=== PATIENT | male | born 1985 | race Caucasian/White ===

== ENCOUNTER 2016-04-13 14:22 | Emergency (ER) | payer BC, OTHER ==
[2016-04-13 15:32] VITALS: BP 137/81
--- NOTE | 2016-04-13 15:52 | UC ---
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;; right worse than left - History Of Current Complaint Chief Complaint: UCUpperExtremity Stated Complaint: HAND PAIN Time Seen by Provider: 04/13/16 15:42 Hx Obtained From: Patient Mechanism Of Injury: repeatitive stress Onset/Duration: Gradual Onset, Lasting Weeks, Still Present Severity Initially: Moderate Severity Currently: Moderate Pain Intensity: 5 Pain Scale Used: 0-10 Numeric Character Of Pain: Aching, Unable To Describe - tingling 2,3,4 fingers Aggravating Factor(s): Movement, Lifting Alleviating: Rest Associated Signs And Symptoms: Positive: Numbness/Tingling - in 2,3,4 fingers Related History: Dominant Hand Right - Allergies/Home Medications Allergies/Adverse Reactions: Allergies Allergy/AdvReac Type Severity Reaction Status Date / Time Tobramycin Allergy Severe Swelling Verified 04/13/16 15:32 Home Medications: Home Medications Acetaminophen 500 mg PO PRN 04/13/16 [History] PMH/Surg Hx/FS Hx/Imm Hx Previously Healthy: No Endocrine History Of: Denies: Diabetes, Thyroid Disease, Hyperthyroidism, Hypothyroidism, Dyslipidemia Cardiovascular History Of: Denies: Cardiac Disorders, Hypertension, Pacemaker/ICD, Myocardial Infarction , Congestive Heart Failure, Atrial Fibrillation, Deep Vein Thrombosis, Bleeding Disorders Respiratory History Of: Denies: COPD, Asthma GI/ History Of: Reports: Gastroesophageal Reflux - He states that he will have occasional reflux, but TUMS takes care of it., Kidney Stones - LEFT Denies: Ulcer, Gastrointestinal Bleed, Gall Bladder Disease, Diverticulitis, Renal Disease, Urosepsis Neurological History Of: Reports: Migraine - He states that gets these infrequently. Denies: TIA, CVA, Dementia, Seizures Psychological History Of: Reports: Anxiety - PAST, Depression - PAST, Post Traumatic Stress Disorder - He is not on medication for it. 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: With Family Alcohol Use: Rare Alcohol Amount: 1/month Substance Use Type: None Smoking Status (MU): Former Smoker Have You Smoked in the Last Year: No When Did the Patient Quit Smoking/Using Tobacco: 2005 Review of Systems Constitutional: Negative Skin: Negative Eyes: Negative ENT: Negative Respiratory: Negative Cardiovascular: Negative Gastrointestinal: Negative Genitourinary: Negative Motor: Weakness - right hand worse than left Neurovascular: Negative Musculoskeletal: Arthralgia - right worse than left hand and wrist Neurological: Negative Psychological: Negative All Other Systems Reviewed And Are Negative: Yes Physical Exam Triage Information Reviewed: Yes Appearance: Well-Appearing, No Pain Distress, Obese Vital Signs: Initial Vital Signs Temp 97.5 F 04/13/16 15:28 Pulse 83 04/13/16 15:28 Resp 18 04/13/16 15:28 BP 137/81 04/13/16 15:28 Pulse Ox 99 04/13/16 15:28 Vital Signs Reviewed: Yes Eye Exam: Normal Eyes: Positive: Conjunctiva Clear ENT Exam: Normal ENT: Positive: Normal ENT inspection, Hearing grossly normal. 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 Neurological Exam: Normal Neurological: Positive: Alert, Muscle Tone Normal Psychological Exam: Normal Skin Exam: Normal Hand/Wrist Course/Dx - Course Course Of Treatment: carpal tunnel exercise, wrist spling pain med, follow with ortho and PT - Differential Dx/Diagnosis Differential Diagnosis/HQI/PQRI: Carpal Tunnel Syndrome, Contusion, Gout Provider Diagnoses: B/l Carpal Tunnel PAin Discharge - Discharge Plan Condition: Stable Disposition: HOME Prescriptions: Methylprednisolone [Medrol Dosepak 4 MG*] 0 mg PO .SEE ELINA INSTRUCTION #1 elina Tramadol HCl [Ultram] 50 - 100 mg PO BID PRN #20 tab MDD 4 PRN Reason: pain Patient Education Materials: Carpal Tunnel Syndrome Exercises (GEN), Carpal Tunnel Syndrome (ED) Forms: *Work Release Referrals: No Primary Care Phys,NOPCP [Primary Care Provider] - Fidelia Herrera MD [Medical Doctor] - 2 Weeks
== END 2016-04-13 16:18 | disposition home or self-care (01) ==
LOC: UCEAST 14:22
DX: G56.03 Carpal tunnel syndrome, bilateral upper limbs (principal); Z88.1 Allergy status to other antibiotic agents; Z87.891 Personal history of nicotine dependence
CPT/HCPCS: 99212; G0463

== ENCOUNTER 2016-05-14 11:51 | Emergency (ER) | payer OTHER ==
[2016-05-14 12:16] VITALS: BP 140/76
--- NOTE | 2016-05-14 12:26 | UC ---
FLU HPI - HPI Summary HPI Summary: body aches, cough, sore throat, chills subjective fever for 4 days - History of Current Complaint Hx Obtained From: Patient Onset/Duration: Sudden Onset, Lasting Days - 4, Still Present Severity Currently: Moderate Severity Initially: Moderate Pain Intensity: 7 Pain Scale Used: 0-10 Numeric Associated Signs & Symptoms: Positive: Fever, Myalgia, Cough, Sore Throat, Nasal Congestion, Headache <Alivia Mitchell - Last Filed: 05/14/16 13:06> <Michelle Quarles - Last Filed: 05/14/16 13:45> - History of Current Complaint Chief Complaint: UCRespiratory Stated Complaint: SORE THROAT CONGESTION JOINT PAIN Time Seen by Provider: 05/14/16 12:25 - Allergy/Home Medications Allergies/Adverse Reactions: Allergies Allergy/AdvReac Type Severity Reaction Status Date / Time Tobramycin Allergy Severe Swelling Verified 05/14/16 12:16 Home Medications: Home Medications Ibuprofen TAB* [Advil TAB*] 200 mg PO TID PRN 05/14/16 [History Confirmed ] PMH/Surg Hx/FS Hx/Imm Hx Previously Healthy: No Endocrine History Of: Denies: Diabetes, Thyroid Disease, Hyperthyroidism, Hypothyroidism, Dyslipidemia Cardiovascular History Of: Denies: Cardiac Disorders, Hypertension, Pacemaker/ICD, Myocardial Infarction , Congestive Heart Failure, Atrial Fibrillation, Deep Vein Thrombosis, Bleeding Disorders Respiratory History Of: Denies: COPD, Asthma GI/ History Of: Reports: Gastroesophageal Reflux - He states that he will have occasional reflux, but TUMS takes care of it., Kidney Stones - LEFT Denies: Ulcer, Gastrointestinal Bleed, Gall Bladder Disease, Diverticulitis, Renal Disease, Urosepsis Neurological History Of: Reports: Migraine - He states that gets these infrequently. Denies: TIA, CVA, Dementia, Seizures Psychological History Of: Reports: Anxiety - PAST, Depression - PAST, Post Traumatic Stress Disorder - He is not on medication for it. 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: With Family Alcohol Use: Rare Alcohol Amount: 1/month Substance Use Type: None Smoking Status (MU): Former Smoker Have You Smoked in the Last Year: No When Did the Patient Quit Smoking/Using Tobacco: 2005 <Alivia Mitchell Last Filed: 05/14/16 13:06> Review of Systems Constitutional: Fever - subjective, Chills, Fatigue Skin: Negative Eyes: Negative ENT: Sore Throat, Ear Ache, Nasal Discharge Respiratory: Cough Cardiovascular: Negative Gastrointestinal: Negative Genitourinary: Negative Motor: Negative Neurovascular: Negative Musculoskeletal: Arthralgia, Myalgia Neurological: Headache Psychological: Negative All Other Systems Reviewed And Are Negative: Yes <Alivia Mitchell Filed: 05/14/16 13:06> Physical Exam Triage Information Reviewed: Yes Appearance: Ill-Appearing - mild, Pain Distress - mild, Obese Vital Signs: Initial Vital Signs Temp 98.0 F 05/14/16 12:11 Pulse 94 05/14/16 12:11 Resp 20 05/14/16 12:11 BP 140/76 05/14/16 12:11 Pulse Ox 100 05/14/16 12:11 Vital Signs Reviewed: Yes Eye Exam: Normal Eyes: Positive: Conjunctiva Clear ENT Exam: Normal ENT: Positive: Normal ENT inspection, Hearing grossly normal, Pharynx normal, TMs normal. Negative: Nasal congestion, Nasal drainage, Tonsillar swelling, Tonsillar exudate, Trismus, Muffled/hoarse voice Dental Exam: Normal Neck exam: Normal Neck: Positive: Supple, Nontender, No Lymphadenopathy Respiratory Exam: Normal Respiratory: Positive: Chest non-tender, Lungs clear, Normal breath sounds, No respiratory distress, No accessory muscle use Cardiovascular Exam: Normal Cardiovascular: Positive: RRR, No Murmur, Pulses Normal, Brisk Capillary Refill Abdominal Exam: Normal Abdomen Description: Positive: Nontender, No Organomegaly, Soft Bowel Sounds: Positive: Present Musculoskeletal Exam: Normal Musculoskeletal: Positive: Strength Intact, ROM Intact, No Edema Neurological Exam: Normal Neurological: Positive: Alert, Muscle Tone Normal Psychological Exam: Normal Skin Exam: Normal <Alivia Mitchell Filed: 05/14/16 13:06> Vital Signs: Initial Vital Signs Temp 98.0 F 05/14/16 12:11 Pulse 94 05/14/16 12:11 Resp 20 05/14/16 12:11 BP 140/76 05/14/16 12:11 Pulse Ox 100 05/14/16 12:11 <Michelle Quarles - Last Filed: 05/14/16 13:45> Diagnostics - Laboratory Diagnostic Studies Completed/Ordered: Influenza A (+) <Alivia Mitchell - Last Filed: 05/14/16 13:06> Flu Course/Dx - Course Course Of Treatment: rest, increase fluids, tylenol, ibuprofen, follow with pcp prn - Differential Dx/Diagnosis Differential Diagnosis/HQI/PQRI: Influenza, Pneumonia, RSV, Upper Respiratory Infection Provider Diagnoses: Influenza A <Alivia Mitchell - Last Filed: 05/14/16 13:06> Discharge <Alivia Mitchell - Last Filed: 05/14/16 13:06> <Michelle Quarles - Last Filed: 05/14/16 13:45> - Discharge Plan Condition: Stable Disposition: HOME Patient Education Materials: Influenza (ED) Forms: *Work Release Referrals: [facility] [place] [facility]IAN REFERRAL [Outside] - If Needed No Primary Care Phys,NOPCP [Primary Care Provider] - Attestation Statement User Type: Provider - I was available for consult. This patient was seen by the DENISE. The patient was not presented to, seen by, or examined by me. <Michelle Quarles - Last Filed: 05/14/16 13:45>
== END 2016-05-14 13:05 | disposition home or self-care (01) ==
LOC: UCEAST 11:51
DX: J10.1 Influenza due to other identified influenza virus with other respiratory manifestations (principal); E66.9 Obesity, unspecified; R03.0 Elevated blood-pressure reading, without diagnosis of hypertension; Z88.1 Allergy status to other antibiotic agents; Z87.891 Personal history of nicotine dependence
CPT/HCPCS: 87502; 99211; G0463

== ENCOUNTER 2016-06-22 11:42 | Emergency (ER) | payer OTHER ==
[2016-06-22 12:03] VITALS: BP 142/75
--- NOTE | 2016-06-22 12:38 | RAD ---
HISTORY: Lateral left foot pain COMPARISONS: November 12, 2015 VIEWS: 3, Frontal, lateral, and oblique views of the left foot FINDINGS: BONE DENSITY: Normal. BONES: There is no displaced fracture. JOINTS: There is no arthropathy. ALIGNMENT: There is no dislocation. SOFT TISSUES: Unremarkable. OTHER FINDINGS: None. IMPRESSION: NO ACUTE OSSEOUS INJURY. IF SYMPTOMS PERSIST, RECOMMEND REPEAT IMAGING.
[2016-06-22] MEDS ORDERED: Acetaminophen TAB* 325 MG PO ONE (12:44)
[2016-06-22] MEDS ORDERED: Ibuprofen TAB* 600 MG PO ONE (12:45)
--- NOTE | 2016-06-22 12:54 | UC ---
An Mesa SooYoung, scribed for [facility] MD on 06/22/16 at 1201 . Lower Extremity/Ankle HPI - HPI Summary HPI Summary: IN ROOM NOTE: A 30 y/o M presents to [facility] [place] with c/o LLE pain along lateral part of L foot onset yesterday morning. Pt was standing at work for a long period in "bad shoes" and developed pain the following day. Pt states he is also getting over a cold, flu. No overnight hospitalizations recently. PMHx: intermittent gout since 2009. Pain is at the same location of his gout flare-ups, but he states the previous episodes of gout do not feel similar to his sx today. NOTE: Vital signs stable. Temp 98.3. BP is 142/75, is not on anti-HTN medications. Pulse ox 98. 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 PAIN IS OVER 4TH AND 5TH METATARSALS. HX OF GOUT IN BOTH FEET. PAIN STARTED YESTERDAY MORNING AFTER 9.5 HOUR SHIFT. STOOD ON IT FOR AN ADDITIONAL 7 HOURS TODAY. 5/10 PAIN NON-WEIGHT BEARING. 9/10 PAIN WHEN TRYING TO BEAR WEIGHT. NO PREVIOUS INJURIES TO FOOT. - History of Current Complaint Stated Complaint: FOOT PAIN Time Seen by Provider: 06/22/16 11:52 Hx Obtained From: Patient Onset/Duration: Lasting Days, Still Present Severity Currently: Moderate Pain Intensity: 5 Pain Scale Used: 0-10 Numeric Aggravating Factor(s): Standing, Ambulation Related History: Occupational Injury - Allergies/Home Medications Allergies/Adverse Reactions: Allergies Allergy/AdvReac Type Severity Reaction Status Date / Time Tobramycin Allergy Severe Swelling Verified 06/22/16 11:53 PMH/Surg Hx/FS Hx/Imm Hx Previously Healthy: No Endocrine History Of: Denies: Diabetes, Thyroid Disease, Hyperthyroidism, Hypothyroidism, Dyslipidemia Cardiovascular History Of: Denies: Cardiac Disorders, Hypertension, Pacemaker/ICD, Myocardial Infarction , Congestive Heart Failure, Atrial Fibrillation, Deep Vein Thrombosis, Bleeding Disorders Respiratory History Of: Denies: COPD, Asthma GI/ History Of: Reports: Gastroesophageal Reflux - He states that he will have occasional reflux, but TUMS takes care of it., Kidney Stones - LEFT Denies: Ulcer, Gastrointestinal Bleed, Gall Bladder Disease, Diverticulitis, Renal Disease, Urosepsis Neurological History Of: Reports: Migraine - He states that gets these infrequently. Denies: TIA, CVA, Dementia, Seizures Psychological History Of: Reports: Anxiety - PAST, Depression - PAST, Post Traumatic Stress Disorder - He is not on medication for it. Denies: Bipolar Disorder, Schizophrenia Cancer History Of: Denies: Lung Cancer, Colorectal Cancer, Breast Cancer, Prostate Cancer, Cervical Cancer Other History Of: Negative For: HIV, Hepatitis B, Hepatitis C, Anticoagulant Therapy - Surgical History Surgical History: Yes Surgery Procedure, Year, and Place: TONSILLECTOMY, RIGHT KIDNEY STONE LITHOTRIPSY - Family History Known Family History: Positive: Cardiac Disease, Hypertension, Diabetes Negative: Renal Disease - Social History Occupation: Employed Full-time Alcohol Use: Rare Alcohol Amount: 1/month Substance Use Type: None Smoking Status (MU): Former Smoker Have You Smoked in the Last Year: No When Did the Patient Quit Smoking/Using Tobacco: 2005 Review of Systems Constitutional: Negative Musculoskeletal: Other: - pain at L foot All Other Systems Reviewed And Are Negative: Yes Physical Exam Triage Information Reviewed: Yes Appearance: Well-Appearing, No Pain Distress, Well-Nourished Vital Signs: Initial Vital Signs Temp 98.3 F 06/22/16 11:54 Pulse 100 06/22/16 11:54 Resp 16 06/22/16 11:54 BP 142/75 06/22/16 11:54 Pulse Ox 98 06/22/16 11:54 Vital Signs Reviewed: Yes Eyes: Positive: Conjunctiva Clear ENT: Positive: Hearing grossly normal, Pharynx normal, TMs normal. Negative: Muffled/hoarse voice Neck: Positive: Supple, No Lymphadenopathy Respiratory: Positive: Chest non-tender, Lungs clear, Normal breath sounds, No respiratory distress Cardiovascular: Positive: RRR, No Murmur Abdomen Description: Positive: Nontender, No Organomegaly, Soft Musculoskeletal: Positive: Other: - MELCHOR; TENDERNESS AT 4TH AND 5TH METATARSAL. Neurological: Positive: Alert Psychological: Positive: Age Appropriate Behavior Skin: Negative: rashes Diagnostics - Radiology L FOOT Xray Interpretation: No Acute Changes - No fx. Radiology Interpretation Completed By: ED Physician Lower Extremity Course/Dx - Course Course Of Treatment: Pt is a 30 y/o high BMI M pt, who stands at work with c/o L foot discomfort. Negative XR. Occupational injury, specifically, sprain of ligaments between 4th, 5th and 3rd metatarsals of L foot. Hypertensive BP reading of 142/75; patient referred to PCP for follow-up within 4 weeks. Medications have been included in the original chart and reviewed. - Differential Dx/Diagnosis Differential Diagnosis/HQI/PQRI: Fracture (Closed), Sprain Provider Diagnoses: L foot sprain Discharge - Discharge Plan Condition: Stable Disposition: HOME Patient Education Materials: Foot Sprain (ED) Referrals: [facility] [place] [facility]FERRAL [Outside] No Primary Care Phys,NOPCP [Primary Care Provider] - (Establish with a new primary care provider. Follow-up within the next 4 weeks for blood pressure readings and furthur evaluation.) Additional Instructions: we discussed: 1. You have sprained your left foot. 2. Rest, elevation, joan, ice after work, warm moist heat in the morning. 3. PAIN MANAGEMENT Most pain can be brought down to a reasonable level with the following: Ibuprofen 400mg PLUS acetaminophen 1000mg, every 6 hours. Maximum is 4 doses a day. 4. Re check at any time for increased pain or disability. 5. If you decide to use crutches, we can call them in for you. Note: One of your blood pressure readings was high. You had an elevated Blood Pressure reading of 142/75. Establish with a new primary care provider. Follow-up within the next 4 weeks for blood pressure readings and further evaluation. If you can't find a provider, try to check your blood pressure on your own and see if it is above 120/80. If so, follow up for further evaluation and treatment. The documentation as recorded by the An perez SooYoung accurately reflects the service I personally performed and the decisions made by me, Wu Velez MD.
== END 2016-06-22 12:54 | disposition home or self-care (01) ==
LOC: UCEAST 11:42
DX: S93.602A Unspecified sprain of left foot, initial encounter (principal); X50.1XXA Overexertion from prolonged static or awkward postures, initial encounter; K21.9 Gastro-esophageal reflux disease without esophagitis; F41.9 Anxiety disorder, unspecified; G43.909 Migraine, unspecified, not intractable, without status migrainosus; Z87.891 Personal history of nicotine dependence; Z87.442 Personal history of urinary calculi; Z88.3 Allergy status to other anti-infective agents
CPT/HCPCS: 99212; A9270-GY; G0463

== ENCOUNTER 2017-11-07 19:13 | Emergency (ER) | payer OTHER ==
--- NOTE | 2017-11-07 19:54 | ED ---
Lower Extremity - HPI Summary HPI Summary: Pt is a 32 year old male presenting to the ED with a chief complaint of his left leg feeling odd that started about an hour and a half ago. Pt was at the [place] this past few days, but today when he was at work, his leg started to feel numb. It was not any weaker than normal, but he said he felt somewhat numb and weird in his left face and arm. 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 Currently, the pt denies any pain and any trouble with gait, and the pain does not travel down his legs. The pt has a hx of back pain, kidney stones, and carpal tunnel. Pt has had no surgeries on his leg, and denies any R leg pain. - History of Current Complaint Chief Complaint: EDGeneral Stated Complaint: LEFT FACE/ARM/LEG NUMBNESS Time Seen by Provider: 11/07/17 19:42 Hx Obtained From: Patient Onset of Pain: Days Onset/Duration: Weeks - 1 week ago Severity Initially: Mild Severity Currently: Mild Pain Intensity: 3 Pain Scale Used: 0-10 Numeric Timing: Constant Location: Other - L leg Character Of Pain: Unable To Describe - numbness in leg Associated Signs And Symptoms: Positive: Weakness Aggravating Factor(s): Weight Bearing Alleviating Factor(s): Rest Able to Bear Weight: Yes - Allergies/Home Medications Allergies/Adverse Reactions: Allergies Allergy/AdvReac Type Severity Reaction Status Date / Time tobramycin Allergy Swelling Verified 11/07/17 19:31 PMH/Surg Hx/FS Hx/Imm Hx Previously Healthy: No Endocrine/Hematology History: Denies: Hx Anticoagulant Therapy, Hx Diabetes, Hx Thyroid Disease Cardiovascular History: Denies: Hx Congestive Heart Failure, Hx Deep Vein Thrombosis, Hx Hypertension , Hx Myocardial Infarction, Hx Pacemaker/ICD, Other Cardiovascular Problems/ Disorders Respiratory History: Denies: Hx Asthma, Hx Chronic Obstructive Pulmonary Disease (COPD), Hx Lung Cancer, Other Respiratory Problems/Disorders GI History: Denies: Hx Gall Bladder Disease, Hx Gastrointestinal Bleed, Hx Ulcer, Hx Urosepsis, Other GI Disorders History: Reports: Hx Kidney Stones - LEFT Denies: Hx Renal Disease Musculoskeletal History: Reports: Hx Back Problems, Other Musculoskeletal History - carpal tunnel Sensory History: Reports: Hx Contacts or Glasses - GLASSES Denies: Hx Hearing Aid Opthamlomology History: Reports: Hx Contacts or Glasses - GLASSES Neurological History: Reports: Hx Migraine - He states that gets these infrequently. Denies: Hx Dementia, Hx Seizures, Hx Transient Ischemic Attacks (TIA), Other Neuro Impairments/Disorders Psychiatric History: Reports: Hx Anxiety - PAST, Hx Depression - PAST Denies: Hx Schizophrenia, Hx Bipolar Disorder - Surgical History Surgery Procedure, Year, and Place: TONSILLECTOMY, RIGHT KIDNEY STONE LITHOTRIPSY Hx Anesthesia Reactions: No Infectious Disease History: No Infectious Disease History: Denies: Hx Clostridium Difficile, Hx Hepatitis, Hx Human Immunodeficiency Virus (HIV), Hx of Known/Suspected MRSA, Hx Shingles, Hx Tuberculosis, Hx Known/ Suspected VRE, Hx Known/Suspected VRSA, History Other Infectious Disease, Traveled Outside the [place] in Last 30 Days - Family History Known Family History: Positive: None, Cardiac Disease, Hypertension, Diabetes Negative: Renal Disease - Social History Alcohol Use: Rare Alcohol Amount: 1/month Substance Use Type: Reports: None Smoking Status (MU): Former Smoker Have You Smoked in the Last Year: No Review of Systems Negative: Fever Positive: Other - L leg numbness All Other Systems Reviewed And Are Negative: Yes Physical Exam - Summary Physical Exam Summary: Appearance: Well-appearing, Well-nourished, lying in bed comfortable Skin: Warm, dry, no obvious rash Eyes: sclera anicteric, no conjunctival pallor ENT: mucous membranes moist Neck: deferred Respiratory: No signs of respiratory distress Cardiovascular: Appears well perfused, pulses are nml Abdomen: deferred Musculoskeletal: Moving all 4 extremities without obvious discomfort, able to stand, take off pants, and is stable on one leg at a time. Neurological: Awake and alert, mentation is normal, speech is fluent and appropriate Psychiatric: affect is normal, does not appear anxious or depressed Triage Information Reviewed: Yes Vital Signs On Initial Exam: Initial Vitals Temp Pulse Resp BP Pulse Ox 98.8 F 91 20 147/79 98 11/07/17 19:25 11/07/17 19:25 11/07/17 19:25 11/07/17 19:25 11/07/17 19:25 Vital Signs Reviewed: Yes Diagnostics - Vital Signs Vital Signs Temp Pulse Resp BP Pulse Ox 11/07/17 19:25 98.8 F 91 20 147/79 98 - Laboratory Lab Statement: Any lab studies that have been ordered have been reviewed, and results considered in the medical decision making process. - EKG No standard instances Cardiac Rate: NL - 94 bpm EKG Rhythm: Sinus Rhythm ST Segment: Normal Ectopy: None EKG Interpretation: Normal Discharge - Sign-Out/Discharge Documenting (check all that apply): Patient Departure - Discharge Plan Condition: Good Disposition: HOME Patient Education Materials: Paresthesia (ED), Lumbar Radiculopathy (ED) Referrals: [facility] [Outside] No Primary Care Phys,NOPCP [Primary Care Provider] - - Attestation Statements Document Initiated by Scribe: Yes Documenting Scribe: Mariana Lamar Provider For Whom Scribe is Documenting (Include Credential): Momo Morrell MD. Scribe Attestation: Mariana Mesa scribed for Momo Morrell MD. on 11/07/17 at 2030.
[2017-11-07 20:17] VITALS: BP 163/97
== END 2017-11-07 20:15 | disposition home or self-care (01) ==
LOC: ED 19:13
DX: R20.0 Anesthesia of skin (principal); Z87.891 Personal history of nicotine dependence
CPT/HCPCS: 93005; 99282

== ENCOUNTER 2017-12-09 18:14 | Emergency (ER) | payer BC, OTHER ==
[2017-12-09 18:23] VITALS: BP 139/57
--- NOTE | 2017-12-09 19:28 | UC ---
Back Pain HPI - HPI Summary HPI Summary: 32-year-old male presents with one-week history of low back pain. States started approximately one week ago when he was attempting to pop his back. Reports constant dull pain that occasionally becomes sharp and increases with intensity with movement and ambulation. Pain improves with rest and positioning. Has taken [id number] ibuprofen with some relief as well. States has had a couple of intermittent episodes of numbness to the lateral aspect of his right leg. Denies fever, chills, abdominal pain, nausea, vomiting , dysuria, urgency, frequency, hematuria, difficulty ambulating, or loss of bowel or bladder control. - History of Current Complaint Chief Complaint: UCBackPain Stated Complaint: BACK PAIN Time Seen by Provider: 12/09/17 18:50 Hx Obtained From: Patient Onset/Duration: Sudden Onset, Lasting Weeks - 1 Timing: Constant Severity Initially: Moderate Severity Currently: Moderate Pain Intensity: 6 Character: Dull Aggravating Factor(s): Movement, Walking Alleviating Factor(s): Rest, Position, OTC Meds Associated Signs And Symptoms: Positive: Numbness. Negative: Fever, Weakness, Tingling, Abdominal Pain, Flank Pain, Bladder Incontinence, Bowel Incontinence - Allergies/Home Medications Allergies/Adverse Reactions: Allergies Allergy/AdvReac Type Severity Reaction Status Date / Time tobramycin Allergy Swelling Verified 12/09/17 18:23 PMH/Surg Hx/FS Hx/Imm Hx Previously Healthy: Yes GI/ History: Kidney Stones Other History Of: Negative For: HIV, Hepatitis B, Hepatitis C, Anticoagulant Therapy - Surgical History Surgical History: Yes Surgery Procedure, Year, and Place: TONSILLECTOMY, RIGHT KIDNEY STONE LITHOTRIPSY - Family History Known Family History: Positive: None, Cardiac Disease, Hypertension, Diabetes Negative: Renal Disease - Social History Occupation: Employed Full-time Lives: With Family Alcohol Use: Rare Alcohol Amount: 1/month Substance Use Type: None Smoking Status (MU): Former Smoker Have You Smoked in the Last Year: No When Did the Patient Quit Smoking/Using Tobacco: 2005 Review of Systems Constitutional: Negative Skin: Negative Respiratory: Negative Cardiovascular: Negative Gastrointestinal: Negative Genitourinary: Negative Motor: Negative Neurovascular: Negative Musculoskeletal: Other: - See history of present illness. Is Patient Immunocompromised?: No All Other Systems Reviewed And Are Negative: Yes Physical Exam Triage Information Reviewed: Yes Appearance: Well-Appearing, No Pain Distress, Obese Vital Signs: Initial Vital Signs Temp 97.2 F 12/09/17 18:21 Pulse 88 12/09/17 18:21 Resp 12 12/09/17 18:21 BP 139/57 12/09/17 18:21 Pulse Ox 97 12/09/17 18:21 Vital Signs Reviewed: Yes Neck: Positive: Supple, Nontender Respiratory: Positive: Lungs clear, Normal breath sounds Cardiovascular: Positive: RRR, No Murmur Abdomen Description: Positive: Nontender, No Organomegaly, Soft. Negative: CVA Tenderness (R), CVA Tenderness (L) Musculoskeletal: Positive: Strength Intact, Other: - Mild right lumbar paraspinous tenderness. No spasm noted. Neurological: Positive: Alert, Muscle Tone Normal, Other: - Sensation intact distally Skin Exam: Normal Back Pain Course/Dx - Course Course Of Treatment: 32-year-old male with one-week history of low back pain. He is reporting some intermittent numbness in the right upper leg suggestive of some radiculopathy. Exam was unremarkable except for some mild right sided lumbar paraspinous tenderness. Recommend conservative treatment with NSAIDs, muscle relaxant, and heat. He is to establish with a primary care provider if symptoms persist. Patient verbalizes understanding and agrees with plan of care. - Differential Dx/Diagnosis Differential Diagnosis/HQI/PQRI: Herniated Disc, Strain Provider Diagnoses: Lumbar radiculopathy, elevated blood pressure reading Discharge - Sign-Out/Discharge Documenting (check all that apply): Patient Departure All imaging exams completed and their final reports reviewed: No Studies - Discharge Plan Condition: Stable Disposition: HOME Prescriptions: Cyclobenzaprine HCl 10 mg PO Q8HR PRN #15 tablet PRN Reason: Pain - Severe Naproxen [Naproxen 500 mg tab] 500 mg PO BID #30 tablet Patient Education Materials: Lumbar Radiculopathy (ED), Lower Back Exercises ( ED) Referrals: No Primary Care Phys,NOPCP [Primary Care Provider] - [facility] [Outside] Additional Instructions: Take naproxen 1 tablet every 12 hours with food for the next 7 days. After 7 days you may take every 12 hours as needed for pain. Used cyclobenzaprine (Flexeril) one tablet every 8 hours as needed for severe pain or spasm. This medication will cause drowsiness a do not take and drive or operate machinery. Use heating pad for 15-20 minutes 3-4 times a day over affected area. You should establish with a primary care provider to follow-up with your back pain as well as your elevated blood pressure. I have provided you with the number to the [facility]ician Referral service if you need assistance with this. Seek immediate medical attention in the emergency room if you develop a fever greater than 100.5 F, have persistent vomiting, persistent numbness or tingling in her lower extremities, weakness of the lower extremities, or loss of bowel or bladder control. - Billing Disposition and Condition Condition: STABLE Disposition: Home
== END 2017-12-09 19:40 | disposition home or self-care (01) ==
LOC: UCEAST 18:14
DX: M54.16 Radiculopathy, lumbar region (principal); R03.0 Elevated blood-pressure reading, without diagnosis of hypertension; Z88.1 Allergy status to other antibiotic agents; Z87.891 Personal history of nicotine dependence
CPT/HCPCS: 99212; G0463

== ENCOUNTER 2018-05-22 10:41 | Emergency (ER) | payer OTHER ==
[2018-05-22 11:00] VITALS: BP 137/86
--- NOTE | 2018-05-22 11:41 | UC ---
Dental HPI - HPI Summary HPI Summary: 32 you hold with complaint of pain over second lower molar on the right. Tooth is fractured. Previous visit in March with same complaint. Also complains of mild neck swelling on the right. In [facility] comfortable, no complain of pain, slight swelling under right jaw. Afebrile. Taking ibuprofen and acetaminophen. - History of Current Complaint Chief Complaint: UCDentalProblem Stated Complaint: DENTAL PAIN Time Seen by Provider: 05/22/18 11:37 Hx Obtained From: Patient Pain Intensity: 5 - Allergies/Home Medications Allergies/Adverse Reactions: Allergies Allergy/AdvReac Type Severity Reaction Status Date / Time tobramycin Allergy Swelling Verified 05/22/18 11:01 Home Medications: Home Medications Ibuprofen 1 tab PO TID 05/22/18 [History Confirmed 05/22/18] PMH/Surg Hx/FS Hx/Imm Hx Previously Healthy: No Psychological History: Anxiety, Depression Other History Of: Negative For: HIV, Hepatitis B, Hepatitis C, Anticoagulant Therapy - Surgical History Surgical History: Yes Surgery Procedure, Year, and Place: TONSILLECTOMY, RIGHT KIDNEY STONE LITHOTRIPSY - Family History Known Family History: Positive: None, Cardiac Disease, Hypertension, Diabetes Negative: Renal Disease - Social History Occupation: Employed Full-time - [employer] Alcohol Use: Rare Alcohol Amount: 1/month Substance Use Type: None Smoking Status (MU): Former Smoker Length of Time of Smoking/Using Tobacco: pt states it is rare that he smokes now Have You Smoked in the Last Year: No When Did the Patient Quit Smoking/Using Tobacco: 2005 Household Exposure Type: Cigarettes Review of Systems All Other Systems Reviewed And Are Negative: Yes Constitutional: Positive: Negative ENT: Positive: Dental Pain - #31 Respiratory: Positive: Negative Cardiovascular: Positive: Negative Gastrointestinal: Positive: Negative Genitourinary: Positive: Negative Is Patient Immunocompromised?: No Physical Exam Triage Information Reviewed: Yes Appearance: Well-Appearing Vital Signs: Initial Vital Signs Temp 98 F 05/22/18 10:57 Pulse 83 05/22/18 10:57 Resp 18 05/22/18 10:57 BP 137/86 05/22/18 10:57 Pulse Ox 100 05/22/18 10:57 Vital Signs Reviewed: Yes Eye Exam: Normal ENT Exam: Normal ENT: Positive: Pharynx normal, TMs normal, Dental tenderness - slight tenderness under the right jaw, with mild swelling; no tenderness c/w dental abscess.. Negative: Pharyngeal erythema, Nasal congestion, Muffled voice Dental Exam: Normal Neck exam: Normal Neck: Positive: Tenderness @ - slight under right jaw; no erythema appreciated.. Negative: Nontender Respiratory Exam: Normal Respiratory: Positive: Chest non-tender, Lungs clear, Normal breath sounds Cardiovascular Exam: Normal Cardiovascular: Positive: RRR, No Murmur Abdominal Exam: Normal Abdomen Description: Positive: Nontender, No Organomegaly, Soft Bowel Sounds: Positive: Present Musculoskeletal Exam: Normal Neurological Exam: Normal Neurological: Positive: Alert Psychological Exam: Normal Skin Exam: Normal Dental Complaint Course/Dx - Course Course Of Treatment: 32 you hold with complaint of pain over second lower molar on the right. Tooth is fractured. Previous visit in March with same complaint. Also complains of mild neck swelling on the right. In [facility] comfortable, no complain of pain, slight swelling under right jaw. Afebrile. Taking ibuprofen and acetaminophen. Physical examination shows slight swelling and tenderness inferior to the area of the tooth on the neck below the right jaw. No erythema or adenopthy. No evidence by palpation of kezia apical abscess. No significant periodontal disease. Dx is odontalgia. I will start patient on amoxicillin and he will follow up with dentist. He will use ibuprofen and acetaminophen for pain. - Differential Dx/Diagnosis Differential Diagnosis/Dx: Dental Abscess, Dental Caries, Peridontic Disease Provider Diagnosis: Toothache Discharge - Sign-Out/Discharge Documenting (check all that apply): Patient Departure All imaging exams completed and their final reports reviewed: No Studies - Discharge Plan Condition: Stable Disposition: HOME Patient Education Materials: Toothache (ED) Referrals: No Primary Care Phys,NOPCP [Primary Care Provider] - - Billing Disposition and Condition Condition: STABLE Disposition: Home
== END 2018-05-22 12:12 | disposition home or self-care (01) ==
LOC: UCEAST 10:41
DX: K08.89 Other specified disorders of teeth and supporting structures (principal); Z87.891 Personal history of nicotine dependence; Z88.1 Allergy status to other antibiotic agents
CPT/HCPCS: 99212; G0463

== ENCOUNTER 2018-05-24 10:00 | Emergency (ER) | payer OTHER ==
--- NOTE | 2018-05-24 11:28 | ED ---
Throat Pain/Nasal Congestion - HPI Summary HPI Summary: This patient is a 32 year old M presenting to ED with a chief complaint of R jaw swelling since 2 days ago. He had a dental infection since 05/18/18. He was put on Amoxicillin 2 days ago and since then, the swelling has worsened. He has not taken the amoxicillin today. Prior treatment includes 600 mg Ibuprofen and 1000 mg acetaminophen. The patient rates the pain 7/10 in severity. Symptoms aggravated by nothing. Symptoms alleviated by nothing. Patient denies sore throat, pruritus, and rashes. - History of Current Complaint Chief Complaint: EDDentalPain Time Seen by Provider: 05/24/18 10:16 Hx Obtained From: Patient Onset/Duration: Sudden Onset, Lasting Days, Still Present Severity: Moderate - 7/10 - Allergies/Home Medications Allergies/Adverse Reactions: Allergies Allergy/AdvReac Type Severity Reaction Status Date / Time tobramycin Allergy Swelling Verified 05/24/18 10:02 PMH/Surg Hx/FS Hx/Imm Hx Endocrine/Hematology History: Denies: Hx Anticoagulant Therapy, Hx Diabetes, Hx Thyroid Disease Cardiovascular History: Denies: Hx Congestive Heart Failure, Hx Deep Vein Thrombosis, Hx Hypertension , Hx Myocardial Infarction, Hx Pacemaker/ICD, Other Cardiovascular Problems/ Disorders Respiratory History: Denies: Hx Asthma, Hx Chronic Obstructive Pulmonary Disease (COPD), Hx Lung Cancer, Other Respiratory Problems/Disorders GI History: Denies: Hx Gall Bladder Disease, Hx Gastrointestinal Bleed, Hx Ulcer, Hx Urosepsis, Other GI Disorders History: Reports: Hx Kidney Stones - LEFT Denies: Hx Renal Disease Musculoskeletal History: Reports: Hx Back Problems, Other Musculoskeletal History - carpal tunnel Sensory History: Reports: Hx Contacts or Glasses - GLASSES Denies: Hx Hearing Aid Opthamlomology History: Reports: Hx Contacts or Glasses - GLASSES Neurological History: Reports: Hx Migraine - He states that gets these infrequently. Denies: Hx Dementia, Hx Seizures, Hx Transient Ischemic Attacks (TIA), Other Neuro Impairments/Disorders Psychiatric History: Reports: Hx Anxiety - PAST, Hx Depression - PAST Denies: Hx Schizophrenia, Hx Bipolar Disorder - Surgical History Surgery Procedure, Year, and Place: TONSILLECTOMY, RIGHT KIDNEY STONE LITHOTRIPSY Hx Anesthesia Reactions: No Infectious Disease History: No Infectious Disease History: Denies: Hx Clostridium Difficile, Hx Hepatitis, Hx Human Immunodeficiency Virus (HIV), Hx of Known/Suspected MRSA, Hx Shingles, Hx Tuberculosis, Hx Known/ Suspected VRE, Hx Known/Suspected VRSA, History Other Infectious Disease, Traveled Outside the [place] in Last 30 Days - Family History Known Family History: Positive: Cardiac Disease, Hypertension, Diabetes Negative: Renal Disease - Social History Alcohol Use: Rare Alcohol Amount: 1/month Substance Use Type: Reports: None Smoking Status (MU): Former Smoker Length of Time of Smoking/Using Tobacco: pt states it is rare that he smokes now Have You Smoked in the Last Year: No Review of Systems Positive: Dental Pain, Other - R jaw swelling. Negative: Sore Throat Positive: Other - denies pruritus. Negative: Rash All Other Systems Reviewed And Are Negative: Yes Physical Exam - Summary Physical Exam Summary: Constitutional: Well-developed, Well-nourished, Alert. (-) Distressed Skin: Warm, Dry HENT: Atraumatic. 1 cm submandibular lymph node on the left, R submandibular base is swollen and tender to palpation. Gum of the 1st molar on the R has some tenderness. Eyes: Conjunctiva normal Neck: Musculoskeletal ROM normal neck. (-) JVD, (-) Stridor, (-) Tracheal deviation Cardio: Rhythm regular, rate normal, Heart sounds normal; Intact distal pulses; The pedal pulses are 2+ and symmetric. Radial pulses are 2+ and symmetric. (-) Murmur Pulmonary/Chest wall: Effort normal. (-) Respiratory distress, (-) Wheezes, (-) Rales Abd: Soft, (-) tenderness, (-) Distension, (-) Guarding, (-) Rebound Musculoskeletal: (-) Edema Lymph: (-) Cervical adenopathy Neuro: Alert, Oriented x3 Psych: Mood and affect Normal Triage Information Reviewed: Yes Vital Signs On Initial Exam: Initial Vitals Temp Pulse Resp BP Pulse Ox 99 F 105 18 168/97 99 05/24/18 10:03 05/24/18 10:03 05/24/18 10:03 05/24/18 10:03 05/24/18 10:03 Vital Signs Reviewed: Yes Diagnostics - Vital Signs Vital Signs Temp Pulse Resp BP Pulse Ox 05/24/18 10:03 99 F 105 18 168/97 99 - Laboratory Result Diagrams: 05/24/18 12:35 05/24/18 12:35 Lab Statement: Any lab studies that have been ordered have been reviewed, and results considered in the medical decision making process. - CT Maxillofacial CT CT Interpretation Completed By: Radiologist Summary of CT Findings: RIGHT FACIAL INFLAMMATORY CHANGE CONSISTENT WITH CELLULITIS. THERE IS NO LOCULATED FLUID COLLECTION TO SUGGEST SOFT TISSUE ABSCESS. Dr. Ramos has reviewed this radiology report. Re-Evaluation - Re-Evaluation First Eval Re-Evaluation Time: 12:37 Comment: He has some pain down his chest as an extension from the pain from his neck. Second Eval Re-Evaluation Time: 14:23 Comment: Patient reports he last took Ibuprofen and acetaminophen at 0900 this morning. Third Eval Re-Evaluation Time: 15:00 Comment: Discussed results and plan for discharge with the patient. EENT Course/Dx - Course Assessment/Plan: This patient is a 32 year old M presenting to ED with a chief complaint of R jaw swelling since 2 days ago. On exam, the patient has 1 cm submandibular lymph node on the left, R submandibular base is swollen and tender to palpation. Gum has some tenderness of the 1st molar on the R. Maxillofacial CT reveals RIGHT FACIAL INFLAMMATORY CHANGE CONSISTENT WITH CELLULITIS. THERE IS NO LOCULATED FLUID COLLECTION TO SUGGEST SOFT TISSUE ABSCESS. In the ED course, the patient was given Valium to help insert the IV, clindomycin, norco, and Toradol. The patient will be discharged with dx of Hyperglycemia, Facial cellulitis, and Dental infection. - Differential Diagnoses Differential Diagnoses: Other - Hyperglycemia, Facial cellulitis, and Dental infection - Diagnoses Provider Diagnoses: Hyperglycemia, Dental infection, Facial cellulitis Discharge - Sign-Out/Discharge Documenting (check all that apply): Patient Departure - discharge Patient Received Moderate/Deep Sedation with Procedure: No - Discharge Plan Condition: Improved Disposition: HOME Prescriptions: Clindamycin Cap(NF) [Clindamycin Cap 300 mg Cap(NF)] 300 mg PO TID 10 Days #30 cap Patient Education Materials: Dental Abscess (ED), Cellulitis (ED), Nondiabetic Hyperglycemia (ED) Print Language: ALBANIAN Forms: *Work Release Referrals: [facility] [Outside] No Primary Care Phys,NOPCP [Primary Care Provider] - - Billing Disposition and Condition Condition: IMPROVED Disposition: Home - Attestation Statements Document Initiated by Scribe: Yes Documenting Scribe: Pelon Leach Provider For Whom Scribe is Documenting (Include Credential): Katy Velazco Scribe Attestation: I, Pelon Leach, scribed for Katy West on 05/24/18 at 2138. Scribe Documentation Reviewed: Yes Provider Attestation: The documentation as recorded by the scribe, Pelon Leach accurately reflects the service I personally performed and the decisions made by me, Katy Velazco Status of Scribe Document: Viewed
[2018-05-24] MEDS ORDERED: Diazepam TAB(*) 5 MG PO ONE (11:50)
[2018-05-24 12:55] LABS: ABS Basophils 0 10^3/ul (0-0.2); ABS Eosinophils 0 10^3/ul (0-0.6); ABS Lymphocytes 1.8 10^3/ul (1.0-4.8); ABS Monocytes 0.6 10^3/ul (0-0.8); ABS Neutrophils 7.3 10^3/ul (1.5-7.7); ABS Nucleated RBC 0 10^3/ul; Eosinophil % 0.4 %; Hematocrit 42 % (36-46); Hemoglobin 14.5 g/dL (14.0-18.0); Lymphocyte % 18.5 %; Mean Corpuscular HGB Conc 34 g/dL (31-36); Mean Corpuscular Hemoglobin 29 pg (27-31); Mean Corpuscular Volume 86 fL (80-94); Nucleated Red Blood Cells % 0; Platelet Count 255 10^3/uL (150-450); Red Blood Count 4.92 10^6 /uL (4.18-5.48); Red Cell Distribution Width 13 % (10.5-15); White Blood Count 9.8 10^3/uL (3.5-10.8)
[2018-05-24 13:14] LABS: Albumin 4.1 g/dL (3.2-5.2); Albumin/Globulin Ratio 1.2 (1-3); BUN/Creatinine Ratio 13.2 (8-20); Calcium 9.4 mg/dL (8.6-10.3); EGFR African American 162.5 (>60); EGFR Non-African American 134.3 (>60); Globulin 3.4 g/dL (2-4); Potassium 4.1 mmol/L (3.5-5.0); Total Bilirubin 0.5 mg/dL (0.2-1.0); Total Protein 7.5 g/dL (6.4-8.9)
[2018-05-24] MEDS ORDERED: Iohexol 300* (CONTRAST) 10 ML SDV IV ONE (13:24)
[2018-05-24] MEDS ORDERED: Ketorolac INJ* 30 MG/ML 1 ML VIAL IV PUSH ONE (14:30)
[2018-05-24] MEDS ORDERED: HYDROcodone/ACETAMIN 5-325 MG* 1 TAB PO ONE (14:30)
[2018-05-24] MEDS ORDERED: Clindamycin CAP* 150 MG PO ONE (14:31)
[2018-05-24 15:25] VITALS: BP 141/89
== END 2018-05-24 15:23 | disposition home or self-care (01) ==
LOC: ED 10:00
DX: K04.7 Periapical abscess without sinus (principal); L03.211 Cellulitis of face; R73.9 Hyperglycemia, unspecified; R59.0 Localized enlarged lymph nodes; Z88.1 Allergy status to other antibiotic agents; Z82.49 Family history of ischemic heart disease and other diseases of the circulatory system; Z83.3 Family history of diabetes mellitus; Z87.891 Personal history of nicotine dependence
CPT/HCPCS: 36415; 70487; 80053; 85025; 96374; 99282; A9270-GY; J1885; Q9967

== ENCOUNTER 2018-05-25 08:38 | Emergency (ER) | payer OTHER ==
[2018-05-25] MEDS ORDERED: NS 0.9% 1000 ML** 1,000 ML IV ONE ×2 (08:58)
[2018-05-25] MEDS ORDERED: Clindamycin 900 MG IVPREMIX(* 900 MG/50 ML SDV IV ONE (08:58)
--- NOTE | 2018-05-25 08:59 | ED ---
Throat Pain/Nasal Congestion - HPI Summary HPI Summary: Pt. is a 32 y.o male who presents to the ER for increased right sided facial swelling. Pt. states he started with right lower dental pain about one week ago. He was seen at 05/22 and started on amoxicillin. Pt. states he then developed facial swelling and was re-examined in ED yesterday. He had labs and CT scan. CT scan showed facial cellulitis without abscess. Pt. was switched to clindamycin. Pt. states today swelling increased and he was having a hard time swallowing. Pt. notes he is able to swallow water and applesauce. He notes chills. No documented past medical hx but glucose was noted to be elevated yesterday. Symptoms are moderate in severity. No current modifying factors. - History of Current Complaint Chief Complaint: EDDentalPain Time Seen by Provider: 05/25/18 08:46 Hx Obtained From: Patient - Allergies/Home Medications Allergies/Adverse Reactions: Allergies Allergy/AdvReac Type Severity Reaction Status Date / Time tobramycin Allergy Swelling Verified 05/24/18 10:02 Home Medications: Home Medications Acetaminophen [Tylenol Extra Strength] 1,000 mg PO SEE INSTRUCTIONS PRN [History Confirmed 05/25/18] PMH/Surg Hx/FS Hx/Imm Hx Previously Healthy: Yes Endocrine/Hematology History: Denies: Hx Anticoagulant Therapy, Hx Diabetes, Hx Thyroid Disease Cardiovascular History: Denies: Hx Congestive Heart Failure, Hx Deep Vein Thrombosis, Hx Hypertension , Hx Myocardial Infarction, Hx Pacemaker/ICD, Other Cardiovascular Problems/ Disorders Respiratory History: Denies: Hx Asthma, Hx Chronic Obstructive Pulmonary Disease (COPD), Hx Lung Cancer, Other Respiratory Problems/Disorders GI History: Denies: Hx Gall Bladder Disease, Hx Gastrointestinal Bleed, Hx Ulcer, Hx Urosepsis, Other GI Disorders History: Reports: Hx Kidney Stones - LEFT Denies: Hx Renal Disease Musculoskeletal History: Reports: Hx Back Problems, Other Musculoskeletal History - carpal tunnel Sensory History: Reports: Hx Contacts or Glasses - GLASSES Denies: Hx Hearing Aid Opthamlomology History: Reports: Hx Contacts or Glasses - GLASSES Neurological History: Reports: Hx Migraine - He states that gets these infrequently. Denies: Hx Dementia, Hx Seizures, Hx Transient Ischemic Attacks (TIA), Other Neuro Impairments/Disorders Psychiatric History: Reports: Hx Anxiety - PAST, Hx Depression - PAST Denies: Hx Schizophrenia, Hx Bipolar Disorder - Surgical History Surgery Procedure, Year, and Place: TONSILLECTOMY, RIGHT KIDNEY STONE LITHOTRIPSY Hx Anesthesia Reactions: No Infectious Disease History: No Infectious Disease History: Denies: Hx Clostridium Difficile, Hx Hepatitis, Hx Human Immunodeficiency Virus (HIV), Hx of Known/Suspected MRSA, Hx Shingles, Hx Tuberculosis, Hx Known/ Suspected VRE, Hx Known/Suspected VRSA, History Other Infectious Disease, Traveled Outside the [place] in Last 30 Days - Family History Known Family History: Positive: Cardiac Disease, Hypertension, Diabetes Negative: Renal Disease - Social History Occupation: Employed Full-time Lives: With Family Alcohol Use: Rare Alcohol Amount: 1/month Substance Use Type: Reports: None Smoking Status (MU): Former Smoker Length of Time of Smoking/Using Tobacco: pt states it is rare that he smokes now Have You Smoked in the Last Year: No Review of Systems Positive: Fever, Chills ENT: Other - facial swelling Positive: Dental Pain Cardiovascular: Negative Respiratory: Negative Gastrointestinal: Negative Negative: Vomiting, Nausea All Other Systems Reviewed And Are Negative: Yes Physical Exam Triage Information Reviewed: Yes Vital Signs On Initial Exam: Initial Vitals Temp Pulse Resp BP Pulse Ox 99.3 F 107 18 171/109 98 05/25/18 08:42 05/25/18 08:42 05/25/18 08:42 05/25/18 08:42 05/25/18 08:42 Vital Signs Reviewed: Yes Appearance: Positive: Well-Appearing - Pt. sitting up in bed in NAD. present. Skin: Positive: Warm, Dry Head/Face: Positive: Normal Head/Face Inspection Eyes: Positive: Normal, EOMI, TOOTIE ENT: Positive: Other - Significant edema and pain noted to the right mandibular region extending to the submandibular region into lateral neck. moderate trismus. Oral pharnx patent without edema. No pooling of secretions. No swelling or pain under tongue. Respiratory/Lung Sounds: Positive: Clear to Auscultation, Breath Sounds Present Cardiovascular: Positive: Normal, RRR Neurological: Positive: Normal, CN Intact II-III Psychiatric: Positive: Anxious Diagnostics - Vital Signs Vital Signs Temp Pulse Resp BP Pulse Ox 05/25/18 08:42 99.3 F 107 18 171/109 98 - Laboratory Result Diagrams: 05/25/18 09:41 05/25/18 09:41 Lab Statement: Any lab studies that have been ordered have been reviewed, and results considered in the medical decision making process. EENT Course/Dx - Course Course Of Treatment: Pt. presenting for worsening right sided facial swelling. Low grade fever 99.3F, HR 107bpb. BP elevated. Pt. is failing out patient treatment and concerned for early sepsis today. Also concerned with submandibular/neck edema. Pt. maintaining his airway and is tolerating his secretions. Pt. notes he has a fear of needles and has a very hard time tolerating blood work and IVs. Pt. was given valium yesterday which he states did not help. Pt. states nothing usually helps with his anxiety. Explained the importance of IV and blood work. Pt. agreeable to IV and blood work. Labs and IV were delayed secondary to pt.'s anxiety but nurse was successfully able IV access. Pt. was started on IV fluids, clindamycin and toradol. CBC shows increased in WBC, CRP 183. 1030: I spoke with ENT, Dr. Kothari, who recommends repeat CT scan to evaluate for evolving abscess. He also recommends the addition of IV rocephin. 1050: Pt. examined by Dr. Ramos as well. Pt. c/ o increasing tightness in his throat. No signs of allergic rxn. CT per radiology: IMPRESSION: #. Significant interval worsening of superficial and deep soft tissue infection of the. RIGHT face with early abscess formation at the RIGHT media relations intern and mucosal pharyngeal. spaces as described. Associated mild narrowing of the oropharyngeal and nasopharyngeal. airways. 1200: Dr. Kothari reviewed CT scan. Dr. Kothari states he is not available the rest of the week and he spoke with upcoming ENT and he feels that it would be in pt.' s best interest to be trasnferred since they cannot guarentee availability of consult the next few days. I spoke with ENT at [facility], Dr. Mcnamara, who agrees to consult on pt. I spoke with hospitalist at , Dr. Salinas, and he has accepted pt. to his service. Pt. has remained stable in ED and is protecting airway. - Differential Diagnoses Differential Diagnoses: Cellulitis, Dental Abscess, Epiglottitis, Sang's Angina - Diagnoses Provider Diagnoses: Facial abscess, Facial cellulitis - Provider Notifications Reason For Transfer: Specialty or service not available at [facility] Specialist unable to manage this patient. Discharge - Sign-Out/Discharge Documenting (check all that apply): Patient Departure Patient Received Moderate/Deep Sedation with Procedure: No - Discharge Plan Condition: Stable Disposition: TRANS HIGHER LVL OF CARE FAC Referrals: No Primary Care Phys,NOPCP [Primary Care Provider] - - Billing Disposition and Condition Condition: STABLE Disposition: Trans Higher Lvl of Care Fac
[2018-05-25] MEDS ORDERED: Ketorolac INJ* 30 MG/ML 1 ML VIAL IV PUSH ONE (09:02)
[2018-05-25 09:50] LABS: ABS Basophils 0.1 10^3/ul (0-0.2); ABS Eosinophils 0 10^3/ul (0-0.6); ABS Lymphocytes 1.3 10^3/ul (1.0-4.8); ABS Monocytes 1.1 10^3/ul (0-0.8); ABS Neutrophils 9.5 10^3/ul (1.5-7.7); ABS Nucleated RBC 0 10^3/ul; Eosinophil % 0.1 %; Hematocrit 42 % (36-46); Hemoglobin 14.3 g/dL (14.0-18.0); Lymphocyte % 10.8 %; Mean Corpuscular HGB Conc 34 g/dL (31-36); Mean Corpuscular Hemoglobin 29 pg (27-31); Mean Corpuscular Volume 85 fL (80-94); Mean Platelet Volume 7.5 fL (7.4-10.4); Nucleated Red Blood Cells % 0.2; Platelet Count 269 10^3/uL (150-450); Red Blood Count 4.94 10^6 /uL (4.18-5.48); Red Cell Distribution Width 13 % (10.5-15)
[2018-05-25 10:15] LABS: Albumin 4.2 g/dL (3.2-5.2); Albumin/Globulin Ratio 1.1 (1-3); BUN/Creatinine Ratio 11.8 (8-20); C Reactive Protein 183.99 mg/L (<8.01); Calcium 9.4 mg/dL (8.6-10.3); EGFR African American 162.5 (>60); EGFR Non-African American 134.3 (>60); Globulin 3.7 g/dL (2-4); Potassium 3.9 mmol/L (3.5-5.0); Total Bilirubin 0.6 mg/dL (0.2-1.0); Total Protein 7.9 g/dL (6.4-8.9)
[2018-05-25] MEDS ORDERED: cefTRIAXone(*) 1 GM in NS 0.9% 50 ML* 50 ML IVPB ONE (10:38)
[2018-05-25] MEDS ORDERED: Iohexol 300* (CONTRAST) 10 ML SDV IV ONE (11:15)
--- NOTE | 2018-05-25 11:37 | ED ---
Progress - Progress Note Progress Note: ED PROVIDER SAW PATIENT AT REQUEST OF JAY GR. 10:50: ED provider at bedside Discharge - Discharge Plan Referrals: No Primary Care Phys,NOPCP [Primary Care Provider] - - Attestation Statements Document Initiated by Scribe: Yes Documenting Scribe: Eduard Nolan Provider For Whom Scribe is Documenting (Include Credential): Dr. Katy West Scribe Attestation: I, Eduard Nolan, scribed for Dr. Katy West on 05/25/18 at 1137.
[2018-05-25] MEDS ORDERED: HYDROmorphone INJ1* 1 MG/ML SYRINGE IV ONE (12:35)
[2018-05-25] MEDS ORDERED: Ondansetron INJ* 2 MG/ML VIAL IV ONE (12:36)
[2018-05-25] MEDS ORDERED: Acetaminophen ADULT LIQ* 650 MG/20.3 ML UDC PO ONE (12:48)
[2018-05-25 13:18] VITALS: BP 138/92
== END 2018-05-25 14:36 | disposition short-term general hospital (02) ==
LOC: ED 08:38
DX: L02.01 Cutaneous abscess of face (principal); L03.211 Cellulitis of face; K08.89 Other specified disorders of teeth and supporting structures; R50.9 Fever, unspecified; Z87.891 Personal history of nicotine dependence; Z87.442 Personal history of urinary calculi
CPT/HCPCS: 36415; 70487; 80053; 83605; 85025; 86140; 87040; 96361; 96365; 96375; 99285; A9270-GY; J0696; J1170; J1885; J2405; Q9967

== ENCOUNTER 2018-09-13 15:10 | Emergency (ER) | payer OTHER ==
[2018-09-13 15:38] VITALS: BP 127/79
--- NOTE | 2018-09-13 16:09 | UC ---
Knee Pain HPI - HPI Summary HPI Summary: 32 yo male injured his left knee at work on 09/10 He bumped into a pole hurts to bend knee able to bear wt no prior hx of injury - History of Current Complaint Chief Complaint: UCUpperExtremity Stated Complaint: LEFT KNEE PAIN Time Seen by Provider: 09/13/18 16:03 Hx Obtained From: Patient Onset/Duration: Sudden Onset Severity Initially: Moderate Severity Currently: Moderate Pain Intensity: 6 Pain Scale Used: 0-10 Numeric Character: Aching, Throbbing Aggravating Factor(s): Movement Alleviating Factor(s): Rest Associated Signs And Symptoms: Positive: Negative Able to Bear Weight: Yes Legs: 1 - pain/contusion/tenderness - Allergies/Home Medications Allergies/Adverse Reactions: Allergies Allergy/AdvReac Type Severity Reaction Status Date / Time clindamycin Allergy Swelling Verified 09/13/18 15:38 tobramycin Allergy Swelling Verified 09/13/18 15:38 PMH/Surg Hx/FS Hx/Imm Hx Previously Healthy: Yes Other History Of: Negative For: HIV, Hepatitis B, Hepatitis C, Anticoagulant Therapy - Surgical History Surgical History: Yes Surgery Procedure, Year, and Place: TONSILLECTOMY, RIGHT KIDNEY STONE LITHOTRIPSY - Family History Known Family History: Positive: Cardiac Disease, Hypertension, Diabetes Negative: Renal Disease - Social History Alcohol Use: Rare Alcohol Amount: 1/month Substance Use Type: None Smoking Status (MU): Former Smoker Length of Time of Smoking/Using Tobacco: pt states it is rare that he smokes now Have You Smoked in the Last Year: No When Did the Patient Quit Smoking/Using Tobacco: 2005 Household Exposure Type: Cigarettes Review of Systems All Other Systems Reviewed And Are Negative: Yes Constitutional: Positive: Negative Skin: Positive: Negative Eyes: Positive: Negative ENT: Positive: Negative Respiratory: Positive: Negative Cardiovascular: Positive: Negative Gastrointestinal: Positive: Negative Genitourinary: Positive: Negative Motor: Positive: Negative Neurovascular: Positive: Negative Musculoskeletal: Positive: Arthralgia - left knee Neurological: Positive: Negative Psychological: Positive: Negative Physical Exam Triage Information Reviewed: Yes Appearance: Well-Appearing, No Pain Distress, Well-Nourished Vital Signs: Initial Vital Signs Temp 98.7 F 09/13/18 15:34 Pulse 76 09/13/18 15:34 Resp 18 09/13/18 15:34 BP 127/79 09/13/18 15:34 Pulse Ox 99 09/13/18 15:34 Eyes: Positive: Conjunctiva Clear ENT: Positive: Hearing grossly normal. Negative: Tonsillar swelling, Tonsillar exudate Neck: Positive: Supple, Nontender, No Lymphadenopathy Respiratory: Positive: Lungs clear, Normal breath sounds, No respiratory distress Cardiovascular: Positive: RRR, No Murmur Musculoskeletal: Positive: ROM Limited @ - left knee, Edema @ - see image, Other : - stable joint, no effusion noted Neurological: Positive: Alert Psychological Exam: Normal Skin Exam: Normal Diagnostics - Radiology No standard instances Radiology Interpretation Completed By: Radiologist Summary of Radiographic Findings: No fracture of the left knee is noted. Knee Pain Course/Dx - Differential Dx/Diagnosis Provider Diagnosis: Contusion of left knee Discharge - Sign-Out/Discharge Documenting (check all that apply): Patient Departure All imaging exams completed and their final reports reviewed: Yes - Discharge Plan Condition: Stable Disposition: HOME Patient Education Materials: Knee Pain (ED) Forms: *Work Release Referrals: Curtis Ngo MD [Medical Doctor] - As Soon As Possible - Billing Disposition and Condition Condition: STABLE Disposition: Home
== END 2018-09-13 16:54 | disposition home or self-care (01) ==
LOC: UCEAST 15:10
DX: S80.02XA Contusion of left knee, initial encounter (principal); W22.8XXA Striking against or struck by other objects, initial encounter; Y92.9 Unspecified place or not applicable; Y99.0 Civilian activity done for income or pay; Z88.1 Allergy status to other antibiotic agents; Z87.891 Personal history of nicotine dependence
CPT/HCPCS: 99212; G0463

== ENCOUNTER 2019-05-03 19:11 | Inpatient (IN) | payer OTHER ==
[2019-05-03 21:19] LABS: Urine Appearance Clear; Urine Bilirubin Negative (Negative); Urine Blood 2+ (Negative); Urine Color Yellow; Urine Glucose Negative (Negative); Urine Ketones Negative (Negative); Urine Nitrite Negative (Negative); Urine Protein 1+(30 mg/dL) (Negative); Urine Specific Gravity 1.012 (1.010-1.030); Urine Urobilinogen Negative (Negative)
[2019-05-03 21:30] LABS: Urine Bacteria Absent (Absent); Urine Red Blood Cell 1+(3-5/hpf) (Absent); Urine Squamous Epithelial Cell Present (Absent); Urine White Blood Cell Trace(0-5/hpf) (Absent)
[2019-05-03 21:31] LABS: Urine Benzodiazepine Screen None Detected (None Detect); Urine Opiates Screen None Detected (None Detect)
[2019-05-03 22:23] LABS: ABS Basophils 0.1 10^3/ul (0-0.2); ABS Lymphocytes 3.1 10^3/ul (1.0-4.8); ABS Monocytes 0.5 10^3/ul (0-0.8); Eosinophil % 0.5 %; Hematocrit 46 % (42-52); Lymphocyte % 35.6 %; Mean Corpuscular HGB Conc 35 g/dL (31-36); Mean Corpuscular Hemoglobin 30 pg (27-31); Mean Corpuscular Volume 85 fL (80-94); Mean Platelet Volume 8.4 fL (7.4-10.4); Nucleated Red Blood Cells % 0.1; Platelet Count 284 10^3/uL (150-450); Red Blood Count 5.37 10^6 /uL (4.18-5.48); Red Cell Distribution Width 13 % (10-15); White Blood Count 8.6 10^3/uL (3.5-10.8)
[2019-05-03 22:43] LABS: ALT 26 U/L (7-52); Albumin 4.8 g/dL (3.2-5.2); Albumin/Globulin Ratio 1.5 (1-3); Alkaline Phosphatase 50 U/L (34-104); BUN/Creatinine Ratio 11.1 (8-20); Blood Urea Nitrogen 9 mg/dL (6-24); CO2 Carbon Dioxide 23 mmol/L (22-32); Calcium 10.2 mg/dL (8.6-10.3); Chloride 104 mmol/L (101-111); EGFR Non-African American 109.1 (>60); Globulin 3.3 g/dL (2-4); Glucose 131 mg/dL (70-100); Sodium 137 mmol/L (135-145); Total Protein 8.1 g/dL (6.4-8.9)
--- NOTE | 2019-05-03 23:01 | ED ---
Psychiatric Complaint - HPI Summary HPI Summary: Pt is a 33 y/o M presenting to the ED with a chief psychiatric complaint. He states these mental health symptoms have been building up, and today they kind of bubbled over. He says hes not handling things that are going on in his life very well, and today he was alone at work and his negative thoughts were building up. He believed he was doing stupid shit and became increasingly angry at himself. He has been having suicidal thoughts, including driving off a yuniel, driving into a tree, seeing how many times he can get his car rolled over , but states hes too stubborn to actually act on any of those plans, and that he has no current thoughts of hurting himself. He told his boss who then called EMS and had him escorted to [facility]. He denies pain. - History Of Current Complaint Chief Complaint: EDMentalHealth Time Seen by Provider: 05/03/19 19:29 Accompanied By: alone Hx Obtained From: Patient Onset/Duration: Gradual Onset, Lasting Days, Still Present Timing: Days Severity Initially: Moderate Severity Currently: Mild Character: Depressed, Anxious, Angry Aggravating Factor(s): Recent Stress Alleviating Factor(s): Nothing Associated Signs And Symptoms: Positive: Negative Has Suicidal: Reports: Thoughts, With A Plan Has Homicidal: Reports: Thoughts - Allergies/Home Medications Allergies/Adverse Reactions: Allergies Allergy/AdvReac Type Severity Reaction Status Date / Time clindamycin Allergy Swelling Verified 05/03/19 19:28 tobramycin Allergy Swelling Verified 05/03/19 19:28 Home Medications: Home Medications Acetaminophen TAB* [Tylenol TAB*] 650 mg PO Q6H PRN 05/03/19 [History Confirmed 05/03/19] Ibuprofen TAB* [Advil TAB*] 400 mg PO Q6H PRN 05/03/19 [History Confirmed ] PMH/Surg Hx/FS Hx/Imm Hx Previously Healthy: Yes Endocrine/Hematology History: Denies: Hx Anticoagulant Therapy, Hx Diabetes, Hx Thyroid Disease Cardiovascular History: Denies: Hx Congestive Heart Failure, Hx Deep Vein Thrombosis, Hx Hypertension , Hx Myocardial Infarction, Hx Pacemaker/ICD, Other Cardiovascular Problems/ Disorders Respiratory History: Denies: Hx Asthma, Hx Chronic Obstructive Pulmonary Disease (COPD), Hx Lung Cancer, Other Respiratory Problems/Disorders GI History: Denies: Hx Gall Bladder Disease, Hx Gastrointestinal Bleed, Hx Ulcer, Hx Urosepsis, Other GI Disorders History: Reports: Hx Kidney Stones - LEFT Denies: Hx Renal Disease Musculoskeletal History: Reports: Hx Back Problems, Other Musculoskeletal History - carpal tunnel Sensory History: Reports: Hx Contacts or Glasses - GLASSES Denies: Hx Hearing Aid Opthamlomology History: Reports: Hx Contacts or Glasses - GLASSES Neurological History: Reports: Hx Migraine - He states that gets these infrequently. Denies: Hx Dementia, Hx Seizures, Hx Transient Ischemic Attacks (TIA), Other Neuro Impairments/Disorders Psychiatric History: Reports: Hx Anxiety - PAST, Hx Depression - PAST Denies: Hx Schizophrenia, Hx Bipolar Disorder - Surgical History Surgery Procedure, Year, and Place: TONSILLECTOMY, RIGHT KIDNEY STONE LITHOTRIPSY Hx Anesthesia Reactions: No Infectious Disease History: No Infectious Disease History: Denies: Hx Clostridium Difficile, Hx Hepatitis, Hx Human Immunodeficiency Virus (HIV), Hx of Known/Suspected MRSA, Hx Shingles, Hx Tuberculosis, Hx Known/ Suspected VRE, Hx Known/Suspected VRSA, History Other Infectious Disease, Traveled Outside the [place] in Last 30 Days - Family History Known Family History: Positive: Cardiac Disease, Hypertension, Diabetes Negative: Renal Disease - Social History Alcohol Use: Rare Alcohol Amount: 1/month Hx Substance Use: No Substance Use Type: Reports: None Hx Tobacco Use: Yes Smoking Status (MU): Former Smoker Length of Time of Smoking/Using Tobacco: pt states it is rare that he smokes now Have You Smoked in the Last Year: No Review of Systems - ROS Summary Review of Systems Summary: Home Medications Medication Instructions Recorded Confirmed Type Acetaminophen TAB* [Tylenol TAB*] 650 mg PO Q6H PRN 05/03/19 05/03/19 History Ibuprofen TAB* [Advil TAB*] 400 mg PO Q6H PRN 05/03/19 05/03/19 History Negative: Myalgia Positive: Depressed All Other Systems Reviewed And Are Negative: Yes Physical Exam - Summary Physical Exam Summary: General: Obese male. Disheveled. No acute distress. HEENT: Normocephalic, Atraumatic. Eyes: Conjuctiva normal, PERRL. Oropharynx: Clear, mucous membranes moist, (-) exudates. Neck: Soft, FROM, (-) lymphadenopathy, (-) thyromegaly, (-) JVD. Cardiovascular: Normal sinus rhythm, (-) murmur. Lungs: Clear to auscultation bilaterally (-) wheezes, (-) rales, (-) rhonchi. Abdomen: Soft, non-tender, non-distended, (-) organomegaly, normal bowel sounds. Back: (-) CVA tenderness Extremities: No edema. Skin: Warm, dry, (-) rash. Neuro: Alert and oriented x3, moves all extremities equally. No ataxia. No gait disturbance. No sensory deficit. Normal strength, normal sensation. Psychiatric: Poor eye contact. Angry affect. Behavior is aggressive & manipulative. Triage Information Reviewed: Yes Vital Signs On Initial Exam: Initial Vitals Temp Pulse Resp BP Pulse Ox 98.6 F 100 18 152/98 96 05/03/19 19:17 05/03/19 19:17 05/03/19 19:17 05/03/19 19:17 05/03/19 19:17 Vital Signs Reviewed: Yes Procedures - Sedation Patient Received Moderate/Deep Sedation with Procedure: No Diagnostics - Vital Signs Vital Signs Temp Pulse Resp BP Pulse Ox 05/03/19 19:17 98.6 F 100 18 152/98 96 - Laboratory Lab Results: Lab Results 05/03/19 05/03/19 05/03/19 Range/Units 21:03 21:03 22:12 WBC 8.6 (3.5-10.8) 10^3/uL RBC 5.37 (4.18-5.48) 10^6 /uL Hgb 16.0 (14.0-18.0) g/dL Hct 46 (42-52) % MCV 85 (80-94) fL MCH 30 (27-31) pg MCHC 35 (31-36) g/dL RDW 13 (10-15) % Plt Count 284 (150-450) 10^3/uL MPV 8.4 (7.4-10.4) fL Neut % (Auto) 57.7 % Lymph % (Auto) 35.6 % [place] % (Auto) 5.5 % Eos % (Auto) 0.5 % Baso % (Auto) 0.7 % Absolute Neuts (auto) 5.0 (1.5-7.7) 10^3/ul Absolute Lymphs (auto) 3.1 (1.0-4.8) 10^3/ul Absolute Monos (auto) 0.5 (0-0.8) 10^3/ul Absolute Eos (auto) 0.0 (0-0.6) 10^3/ul Absolute Basos (auto) 0.1 (0-0.2) 10^3/ul Absolute Nucleated RBC 0.0 10^3/ul Nucleated RBC % 0.1 Sodium (135-145) mmol/L Potassium Chloride (101-111) mmol/L Carbon Dioxide (22-32) mmol/L Anion Gap BUN (6-24) mg/dL Creatinine (0.67-1.17) mg/dL Est GFR ( Amer) (>60) Est GFR (Non-Af Amer) (>60) BUN/Creatinine Ratio (8-20) Glucose (70-100) mg/dL Calcium (8.6-10.3) mg/dL Total Bilirubin (0.2-1.0) mg/dL AST ALT (7-52) U/L Alkaline Phosphatase (34-104) U/L Total Protein (6.4-8.9) g/dL Albumin (3.2-5.2) g/dL Globulin (2-4) g/dL Albumin/Globulin Ratio (1-3) TSH Urine Color Yellow Urine Appearance Clear Urine pH 5.0 (5-9) Ur Specific [place] 1.012 (1.010-1.030) Urine Protein 1+(30 mg/dl) A (Negative) Urine Ketones Negative (Negative) Urine Blood 2+ A (Negative) Urine Nitrate Negative (Negative) Urine Bilirubin Negative (Negative) Urine Urobilinogen Negative (Negative) Ur Leukocyte Esterase Negative (Negative) Urine WBC (Auto) Trace(0-5/hpf) (Absent) Urine RBC (Auto) 1+(3-5/hpf) A (Absent) Ur Squamous Epith Cells Present A (Absent) Urine Bacteria Absent (Absent) Urine Glucose Negative (Negative) Salicylates Urine Opiates Screen None detected (None Detect) Acetaminophen Ur Barbiturates Screen None detected (None Detect) Ur Phencyclidine Scrn None detected (None Detect) Ur Amphetamines Screen None detected (None Detect) U Benzodiazepines Scrn None detected (None Detect) Urine Cocaine Screen None detected (None Detect) U Cannabinoids Screen None detected (None Detect) Serum Alcohol 05/03/19 Range/Units 22:12 WBC (3.5-10.8) 10^3/uL RBC (4.18-5.48) 10^6 /uL Hgb (14.0-18.0) g/dL Hct (42-52) % MCV (80-94) fL MCH (27-31) pg MCHC (31-36) g/dL RDW (10-15) % Plt Count (150-450) 10^3/uL MPV (7.4-10.4) fL Neut % (Auto) % Lymph % (Auto) % [place] % (Auto) % Eos % (Auto) % Baso % (Auto) % Absolute Neuts (auto) (1.5-7.7) 10^3/ul Absolute Lymphs (auto) (1.0-4.8) 10^3/ul Absolute Monos (auto) (0-0.8) 10^3/ul Absolute Eos (auto) (0-0.6) 10^3/ul Absolute Basos (auto) (0-0.2) 10^3/ul Absolute Nucleated RBC 10^3/ul Nucleated RBC % Sodium 137 (135-145) mmol/L Potassium Pending Chloride 104 (101-111) mmol/L Carbon Dioxide 23 (22-32) mmol/L Anion Gap Pending BUN 9 (6-24) mg/dL Creatinine 0.81 (0.67-1.17) mg/dL Est GFR ( Amer) 132.0 (>60) Est GFR (Non-Af Amer) 109.1 (>60) BUN/Creatinine Ratio 11.1 (8-20) Glucose 131 H (70-100) mg/dL Calcium 10.2 (8.6-10.3) mg/dL Total Bilirubin 0.40 (0.2-1.0) mg/dL AST Pending ALT 26 (7-52) U/L Alkaline Phosphatase 50 (34-104) U/L Total Protein 8.1 (6.4-8.9) g/dL Albumin 4.8 (3.2-5.2) g/dL Globulin 3.3 (2-4) g/dL Albumin/Globulin Ratio 1.5 (1-3) TSH Pending Urine Color Urine Appearance Urine pH (5-9) Ur Specific [place] (1.010-1.030) Urine Protein (Negative) Urine Ketones (Negative) Urine Blood (Negative) Urine Nitrate (Negative) Urine Bilirubin (Negative) Urine Urobilinogen (Negative) Ur Leukocyte Esterase (Negative) Urine WBC (Auto) (Absent) Urine RBC (Auto) (Absent) Ur Squamous Epith Cells (Absent) Urine Bacteria (Absent) Urine Glucose (Negative) Salicylates Pending Urine Opiates Screen (None Detect) Acetaminophen Pending Ur Barbiturates Screen (None Detect) Ur Phencyclidine Scrn (None Detect) Ur Amphetamines Screen (None Detect) U Benzodiazepines Scrn (None Detect) Urine Cocaine Screen (None Detect) U Cannabinoids Screen (None Detect) Serum Alcohol Pending Result Diagrams: 05/03/19 22:12 05/03/19 22:12 Lab Statement: Any lab studies that have been ordered have been reviewed, and results considered in the medical decision making process. Course/Dx - Course Course Of Treatment: 33-year-old male presents by ambulance from work for increased agitated state and instability. Apparently since getting to work he has been ineffective. Angry. Throwing things dropping things. He got to the point where his boss was concerned for his safety and called an ambulance. Patient admits to suicidal ideation. Talks about different ways to start about killing himself on the way home from work including driving into a tree or driving off a yuniel. He states he has a history of suicide attempts. Patient is very difficult to communicate with. He easily becomes angry and agitated. Physical exam otherwise is without abnormality.she is seen by mental health. He will be admitted to behavioral science unit. Mood disorder. - Differential Dx/Clinical Impression Provider Diagnosis: Mood disorder Discharge ED - Sign-Out/Discharge Documenting (check all that apply): Patient Departure - Discharge Plan Condition: Stable Disposition: [facility] - Billing Disposition and Condition Condition: STABLE Disposition: Psychiatric Facility [facility] - Attestation Statements Document Initiated by Scribe: Yes Documenting Scribe: Mariana Lamar Provider For Whom Scribe is Documenting (Include Credential): Gena Torres MD. Scribe Attestation: Mariana Mesa, scribed for Gena Torres MD. on 05/04/19 at 2325. Scribe Documentation Reviewed: Yes Provider Attestation: The documentation as recorded by the scribe, Mariana Lamar accurately reflects the service I personally performed and the decisions made by me, Gena Torres MD. Status of Scribe Document: Viewed
[2019-05-03 23:17] LABS: Acetaminophen < 15 mcg/mL; Alcohol < 10 mg/dL (<10); Salicylate < 2.50 mg/dL (<30)
[2019-05-03 23:30] LABS: AST 21 U/L (13-39); Anion Gap 10 mmol/L (2-11); Potassium 4.3 mmol/L (3.5-5.0)
[2019-05-03 23:40] LABS: TSH (Thyroid Stimulating Horm) 1.83 mcIU/mL (0.34-5.60)
[2019-05-04] MEDS ORDERED: risperiDONE TAB* 1 MG ONE (01:10)
[2019-05-04] MEDS ORDERED: Al Hydrox/Mg Hydrox/Simet LIQ* 30 ML UDC PO PRN (02:09)
[2019-05-04] MEDS ORDERED: chlorproMAZINE TAB* 50 MG PO PRN (10:53)
[2019-05-04] MEDS ORDERED: cloNIDine TAB* 0.1 MG PO PRN (10:53)
[2019-05-04] MEDS: Vitamin THERAPEUTIC TAB PO SCH (13:39)
[2019-05-04] MEDS ORDERED: Ibuprofen TAB* 600 MG ONE (14:08)
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
[2019-05-05] MEDS: Ibuprofen TAB* 600 MG PO PRN (03:37)
[2019-05-05] MEDS: Vitamin THERAPEUTIC TAB PO SCH (09:48)
[2019-05-05] MEDS ORDERED: Diphenoxylat/Atrop 2.5-0.025M* 1 TAB PO ONE (12:00)
--- NOTE | 2019-05-05 12:57 | PN ---
BSU: Group Therapy Note - Service Type Service Type: [id number] Group Psychotherapy - Cognitive Behavioral Group Therapy ( CBT):Patient was attentive and participatory in CBT programming this morning, and remained in good behavioral control. Patient expressed positive insights regarding relevant treatment interventions and goals.
--- NOTE | 2019-05-05 16:21 | PN ---
BSU: Group Therapy Note - Service Type Service Type: [id number] Group Psychotherapy - Medication Education Group: Patient was attentive and participatory in group, and remained in good behavioral control. Patient expressed positive insights regarding relevant treatment interventions. Patient stated understanding of material discussed and had appropriate questions.
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
[2019-05-05] MEDS ORDERED: ARIPiprazole TAB* 2 MG PO SCH (21:00)
[2019-05-06] MEDS: Vitamin THERAPEUTIC TAB PO SCH (09:45)
[2019-05-06] MEDS ORDERED: diPHENhydraMINE PO* 50 MG PO PRN (16:31)
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
[2019-05-06] MEDS: Ibuprofen TAB* 600 MG PO PRN (20:29)
[2019-05-06] MEDS: ARIPiprazole TAB* 5 MG PO SCH (20:30)
[2019-05-07] MEDS: Ibuprofen TAB* 600 MG PO PRN ×2 (08:37→21:57)
[2019-05-07] MEDS: Vitamin THERAPEUTIC TAB PO SCH (08:37)
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
[2019-05-07] MEDS: ARIPiprazole TAB* 5 MG PO SCH (21:56)
[2019-05-08] MEDS: Vitamin THERAPEUTIC TAB PO SCH (07:10)
[2019-05-08] MEDS: Ibuprofen TAB* 600 MG PO PRN ×3 (07:10→22:01)
[2019-05-08] MEDS: Acetaminophen TAB* 325 MG PO PRN ×2 (15:29→22:01)
[2019-05-08] MEDS: ARIPiprazole TAB* 5 MG PO SCH (21:58)
[2019-05-09] MEDS: Ibuprofen TAB* 600 MG PO PRN (07:45)
[2019-05-09] MEDS: Acetaminophen TAB* 325 MG PO PRN (07:45)
[2019-05-09] MEDS: Vitamin THERAPEUTIC TAB PO SCH (07:45)
[2019-05-09 09:50] VITALS: BP 157/88
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
== END 2019-05-09 13:30 | disposition home or self-care (01) | DRG 751 ==
LOC: ED 19:11 → BSU 05-04 00:27
PROVIDERS: ADMIT Psychiatry & Neurology Psychiatry; ATTEND Psychiatry & Neurology Psychiatry
PROC: GZHZZZZ Group Psychotherapy (ICD-10-PCS; principal; 2019-05-05)
DX: F33.1 Major depressive disorder, recurrent, moderate (principal); R45.851 Suicidal ideations; F43.12 Post-traumatic stress disorder, chronic; Z62.810 Personal history of physical and sexual abuse in childhood; F41.1 Generalized anxiety disorder; G43.909 Migraine, unspecified, not intractable, without status migrainosus; Z87.442 Personal history of urinary calculi; Z88.1 Allergy status to other antibiotic agents; Z79.899 Other long term (current) drug therapy; Z87.891 Personal history of nicotine dependence; Z28.21 Immunization not carried out because of patient refusal
CPT/HCPCS: 36415; 80053; 80307; 80320; 80329; 81003; 81015; 84443; 85025; 87086; 90853; 99222; 99231; 99232; 99238; 99284; A9270-GY; G0480

== ENCOUNTER 2019-10-05 04:41 | Inpatient (IN) ==
[2019-10-05 05:27] LABS: ABS Basophils 0.1 10^3/ul (0-0.2); ABS Eosinophils 0.1 10^3/ul (0-0.6); ABS Lymphocytes 3.2 10^3/ul (1.0-4.8); ABS Monocytes 0.4 10^3/ul (0-0.8); Eosinophil % 1.5 %; Hematocrit 43 % (42-52); Hemoglobin 14.6 g/dL (14.0-18.0); Lymphocyte % 40.8 %; Mean Corpuscular HGB Conc 34 g/dL (31-36); Mean Corpuscular Hemoglobin 30 pg (27-31); Mean Corpuscular Volume 87 fL (80-94); Mean Platelet Volume 8.1 fL (7.4-10.4); Platelet Count 267 10^3/uL (150-450); Red Blood Count 4.88 10^6 /uL (4.18-5.48); Red Cell Distribution Width 14 % (10-15); White Blood Count 7.8 10^3/uL (3.5-10.8)
[2019-10-05 05:39] LABS: Urine Appearance Cloudy; Urine Bilirubin Negative (Negative); Urine Blood 1+ (Negative); Urine Color Yellow; Urine Glucose 3+(>=500 mg/dL) (Negative); Urine Ketones Negative (Negative); Urine Nitrite Negative (Negative); Urine Protein 1+(30 mg/dL) (Negative); Urine Specific Gravity 1.022 (1.010-1.030); Urine Urobilinogen Negative (Negative)
[2019-10-05 05:42] LABS: ALT 39 U/L (7-52); AST 29 U/L (13-39); Albumin 4.4 g/dL (3.2-5.2); Albumin/Globulin Ratio 1.4 (1-3); Alkaline Phosphatase 40 U/L (34-104); Anion Gap 9 mmol/L (2-11); BUN/Creatinine Ratio 13.7 (8-20); Blood Urea Nitrogen 13 mg/dL (6-24); CO2 Carbon Dioxide 26 mmol/L (22-32); Calcium 9.2 mg/dL (8.6-10.3); Chloride 105 mmol/L (101-111); EGFR African American 109.8 (>60); EGFR Non-African American 90.8 (>60); Globulin 3.1 g/dL (2-4); Glucose 149 mg/dL (70-100); Sodium 140 mmol/L (135-145); Total Protein 7.5 g/dL (6.4-8.9)
[2019-10-05 05:47] LABS: Urine Bacteria Absent (Absent); Urine Red Blood Cell 3+(>10/hpf) (Absent); Urine Squamous Epithelial Cell Present (Absent); Urine White Blood Cell 2+(11-20/hpf) (Absent)
[2019-10-05 05:58] LABS: Urine Benzodiazepine Screen None Detected (None Detect); Urine Cannabinoids Screen None Detected (None Detect); Urine Opiates Screen None Detected (None Detect)
[2019-10-05 06:01] LABS: Acetaminophen < 15 mcg/mL; Alcohol, S < 10 mg/dL (<10); Salicylate < 2.50 mg/dL (<30)
[2019-10-05 06:17] LABS: TSH Ultra Thyroid Stim Horm 1.34 mcIU/mL (0.34-5.60)
[2019-10-05] MEDS ORDERED: Al Hydrox/Mg Hydrox/Simet LIQ 30 ML UDC PO PRN (09:34)
[2019-10-06] MEDS ORDERED: FENOFIBRATE MICRONIZED 134 MG PO SCH (09:00)
[2019-10-07] MEDS: FENOFIBRATE 130 MG PO SCH (09:16)
[2019-10-07 12:38] LABS: Cholesterol 178 mg/dL; HDL Cholesterol 39.4 mg/dL; LDL Cholesterol 69 mg/dL; Triglycerides 349 mg/dL
[2019-10-08] MEDS: FENOFIBRATE 130 MG PO SCH (08:20)
[2019-10-09] MEDS: FENOFIBRATE 130 MG PO SCH (08:26)
[2019-10-10] MEDS: FENOFIBRATE 130 MG PO SCH (08:41)
[2019-10-10 09:12] VITALS: BP 128/66
== END 2019-10-10 15:00 | disposition home or self-care (01) | DRG 751 ==
LOC: ED 04:41 → BSU 12:03
PROVIDERS: ADMIT Psychiatry & Neurology Psychiatry; ATTEND Psychiatry & Neurology Psychiatry

== ENCOUNTER 2019-11-10 10:40 | Observation (INO) ==
[2019-11-10] MEDS ORDERED: NS 0.9% 1000 ml BAG 1,000 ML IV ONE (10:54)
[2019-11-10 11:23] LABS: ABS Basophils 0.1 10^3/ul (0-0.2); ABS Eosinophils 0.1 10^3/ul (0-0.6); ABS Lymphocytes 3.4 10^3/ul (1.0-4.8); ABS Monocytes 0.5 10^3/ul (0-0.8); ABS Neutrophils 4.1 10^3/ul (1.5-7.7); Eosinophil % 1.2 %; Hematocrit 43 % (42-52); Hemoglobin 15.1 g/dL (14.0-18.0); Lymphocyte % 41.3 %; Mean Corpuscular HGB Conc 35 g/dL (31-36); Mean Corpuscular Hemoglobin 30 pg (27-31); Mean Corpuscular Volume 86 fL (80-94); Mean Platelet Volume 8.8 fL (7.4-10.4); Platelet Count 281 10^3/uL (150-450); Red Blood Count 5.04 10^6 /uL (4.18-5.48); Red Cell Distribution Width 13 % (10-15); White Blood Count 8.2 10^3/uL (3.5-10.8)
[2019-11-10 11:25] LABS: Urine Appearance Clear; Urine Bilirubin Negative (Negative); Urine Blood 1+ (Negative); Urine Color Yellow; Urine Glucose Negative (Negative); Urine Ketones Negative (Negative); Urine Nitrite Negative (Negative); Urine Protein 2+(100 mg/dL) (Negative); Urine Specific Gravity 1.024 (1.010-1.030); Urine Urobilinogen Negative (Negative)
[2019-11-10 11:31] LABS: Urine Bacteria Absent (Absent); Urine Red Blood Cell 1+(3-5/hpf) (Absent); Urine Squamous Epithelial Cell Present (Absent); Urine White Blood Cell Trace(0-5/hpf) (Absent)
[2019-11-10 11:47] LABS: ALT 39 U/L (7-52); Albumin 4.6 g/dL (3.2-5.2); Albumin/Globulin Ratio 1.5 (1-3); Alkaline Phosphatase 43 U/L (34-104); Blood Urea Nitrogen 15 mg/dL (6-24); CO2 Carbon Dioxide 23 mmol/L (22-32); Calcium 10.2 mg/dL (8.6-10.3); Chloride 105 mmol/L (101-111); EGFR African American 119.2 (>60); EGFR Non-African American 98.6 (>60); Glucose 187 mg/dL (70-100); Sodium 139 mmol/L (135-145); Total Protein 7.6 g/dL (6.4-8.9)
[2019-11-10 11:48] LABS: Acetaminophen < 15 mcg/mL; Alcohol, S < 10 mg/dL (<10); Salicylate < 2.50 mg/dL (<30)
[2019-11-10 11:55] LABS: Urine Benzodiazepine Screen None Detected (None Detect); Urine Cannabinoids Screen None Detected (None Detect); Urine Opiates Screen None Detected (None Detect)
[2019-11-10 12:01] LABS: TSH Ultra Thyroid Stim Horm 2.91 mcIU/mL (0.34-5.60)
[2019-11-10 13:08] LABS: AST 25 U/L (13-39); Anion Gap 11 mmol/L (2-11)
[2019-11-10 13:24] LABS: Magnesium 1.7 mg/dL (1.9-2.7)
[2019-11-10] MEDS ORDERED: Magnesium Sulfate 2 gm BAG 2 GM/50 ML BAG IVPB ONE (13:37)
[2019-11-10] MEDS ORDERED: NS 0.9% 1000 ml BAG 1,000 ML IV SCH (17:15)
[2019-11-10] MEDS ORDERED: Dextrose 50% Syringe 50 ml 25 GM/50 ML SYRINGE IV PUSH PRN (17:49)
[2019-11-10] MEDS ORDERED: Enoxaparin 40 MG/0.4 ML SYR SUBCUT SCH (18:00)
[2019-11-10] MEDS: Ziprasidone IM 20 mg VIAL 1 ml VIAL IM ONE (22:23)
[2019-11-11] MEDS: Ziprasidone IM 20 mg VIAL 1 ml VIAL IM ONE (01:47)
[2019-11-11] MEDS ORDERED: Midazolam 2 mg/2 ml VIAL 1 mg/ml 2 ml VIAL (2 mg) IM ONE ×2 (01:57→02:37)
[2019-11-11] MEDS ORDERED: Midazolam 10 mg/10 ml VIAL 1 mg/ml 10 ml VIAL (10 mg) ONE (02:02)
[2019-11-11] MEDS ORDERED: Midazolam 2 mg/2 ml VIAL 1 mg/ml 2 ml VIAL (2 mg) ONE (02:21)
[2019-11-11] MEDS ORDERED: Dexmedetomidine 1,000 MCG in NS 0.9% 250 ml 240 ML IV SCH (03:00)
[2019-11-11] MEDS: Lactated Ringers 1000 ml BAG 1,000 ML IV ONE ×2 (03:57→12:11)
[2019-11-11 04:17] LABS: BUN/Creatinine Ratio 16.5 (8-20); Blood Urea Nitrogen 17 mg/dL (6-24); CO2 Carbon Dioxide 22 mmol/L (22-32); Calcium 9.3 mg/dL (8.6-10.3); Chloride 105 mmol/L (101-111); EGFR African American 99.4 (>60); EGFR Non-African American 82.2 (>60); Glucose 262 mg/dL (70-100); Sodium 137 mmol/L (135-145)
[2019-11-11 04:30] LABS: Anion Gap 10 mmol/L (2-11)
[2019-11-11 04:39] LABS: ABS Lymphocytes 1.8 10^3/ul (1.0-4.8); ABS Monocytes 0.6 10^3/ul (0-0.8); ABS Neutrophils 6.2 10^3/ul (1.5-7.7); Eosinophil % 0.4 %; Hematocrit 41 % (42-52); Hemoglobin 14.2 g/dL (14.0-18.0); Lymphocyte % 20.6 %; Mean Corpuscular HGB Conc 34 g/dL (31-36); Mean Corpuscular Hemoglobin 30 pg (27-31); Mean Corpuscular Volume 87 fL (80-94); Mean Platelet Volume 9.2 fL (7.4-10.4); Platelet Count 256 10^3/uL (150-450); Red Blood Count 4.74 10^6 /uL (4.18-5.48); Red Cell Distribution Width 13 % (10-15); White Blood Count 8.6 10^3/uL (3.5-10.8)
[2019-11-11] MEDS ORDERED: Lactated Ringers 1000 ml BAG 500 ML IV ONE ×2 (05:00→07:00)
[2019-11-11 05:56] LABS: Magnesium 2.3 mg/dL (1.9-2.7)
[2019-11-11 05:58] LABS: Potassium Redraw 5.3 mmol/L (3.5-5.0)
[2019-11-11 09:35] LABS: BUN/Creatinine Ratio 16.8 (8-20); EGFR African American 109.2 (>60); EGFR Non-African American 90.2 (>60); Potassium 4.4 mmol/L (3.5-5.0)
[2019-11-11] MEDS: Heparin 5000 UNITS/ML 1 mL VIAL SUBCUT SCH ×2 (14:11→21:40)
[2019-11-12] MEDS: Heparin 5000 UNITS/ML 1 mL VIAL SUBCUT SCH ×2 (05:42→14:40)
[2019-11-12 08:21] VITALS: BP 148/93
== END 2019-11-12 16:30 ==
LOC: MEDTELE 10:40 → ED 10:40 → MEDTELE 19:35 → ICU 11-11 02:38
PROVIDERS: ADMIT Internal Medicine; ATTEND Internal Medicine

== ENCOUNTER 2019-11-12 17:25 | Inpatient (IN) ==
[2019-11-12] MEDS ORDERED: diPHENhydraMINE IV 50 MG/ML 1 ml VIAL (BENADRYL) IM ONE (17:30)
[2019-11-12] MEDS ORDERED: chlorproMAZINE 25 MG/ML 2 ML (50 MG) IM ONE (17:30)
[2019-11-12] MEDS ORDERED: diPHENhydraMINE IV 50 MG/ML 1 ml VIAL (BENADRYL) ONE (17:30)
[2019-11-12] MEDS ORDERED: Al Hydrox/Mg Hydrox/Simet LIQ 30 ML UDC PO PRN (18:03)
[2019-11-13] MEDS: Vitamin THERAPEUTIC TAB PO SCH (09:49)
[2019-11-14] MEDS: Vitamin THERAPEUTIC TAB PO SCH (08:57)
[2019-11-15] MEDS: Vitamin THERAPEUTIC TAB PO SCH (09:12)
[2019-11-16] MEDS: Vitamin THERAPEUTIC TAB PO SCH (08:56)
[2019-11-16] MEDS ORDERED: NON FORMULARY RESPIRATORY MED 1 DOSE MISC PO SCH (09:00)
[2019-11-16] MEDS ORDERED: VASCEPA 1 GM PO SCH (09:06)
[2019-11-16] MEDS: FENOFIBRATE 134 MG PO SCH (10:53)
[2019-11-16] MEDS: VASCEPA 1 GM PO SCH (11:47)
[2019-11-16] MEDS: Guanfacine ER 1 mg TAB PO SCH (20:59)
[2019-11-17] MEDS: FENOFIBRATE 134 MG PO SCH (08:37)
[2019-11-17] MEDS: VASCEPA 1 GM PO SCH (08:37)
[2019-11-17] MEDS: Vitamin THERAPEUTIC TAB PO SCH (08:38)
[2019-11-17] MEDS: Guanfacine ER 1 mg TAB PO SCH (20:32)
[2019-11-18] MEDS: FENOFIBRATE 134 MG PO SCH (08:22)
[2019-11-18] MEDS: VASCEPA 1 GM PO SCH (08:22)
[2019-11-18] MEDS: Vitamin THERAPEUTIC TAB PO SCH (08:22)
[2019-11-18] MEDS: Guanfacine ER 2 mg TAB PO SCH (22:31)
[2019-11-19] MEDS: VASCEPA 1 GM PO SCH (09:09)
[2019-11-19] MEDS: Vitamin THERAPEUTIC TAB PO SCH (09:09)
[2019-11-19] MEDS: FENOFIBRATE 134 MG PO SCH (09:09)
[2019-11-19] MEDS: Guanfacine ER 2 mg TAB PO SCH (22:09)
[2019-11-20] MEDS: VASCEPA 1 GM PO SCH (09:44)
[2019-11-20] MEDS: FENOFIBRATE 134 MG PO SCH (09:45)
[2019-11-20] MEDS: Vitamin THERAPEUTIC TAB PO SCH (09:45)
[2019-11-20] MEDS: Guanfacine ER 2 mg TAB PO SCH (21:45)
[2019-11-21] MEDS: Vitamin THERAPEUTIC TAB PO SCH (08:33)
[2019-11-21] MEDS: VASCEPA 1 GM PO SCH (08:34)
[2019-11-21] MEDS: FENOFIBRATE 134 MG PO SCH (08:34)
[2019-11-21 08:37] VITALS: BP 119/68
== END 2019-11-21 12:05 | disposition home or self-care (01) | DRG 755 ==
LOC: BSU 17:25
PROVIDERS: ADMIT Psychiatry & Neurology Addiction Psychiatry; ATTEND Psychiatry & Neurology Psychiatry

== ENCOUNTER 2021-03-07 00:44 | Inpatient (IN) ==
[2021-03-07 01:49] LABS: ABS Lymphocytes 0.7 10^3/ul (1.0-4.8); ABS Monocytes 0.2 10^3/ul (0-0.8); ABS Neutrophils 3.2 10^3/ul (1.5-7.7); Eosinophil % 0.1 %; Hematocrit 44 % (42-52); Hemoglobin 14.9 g/dL (14.0-18.0); Lymphocyte % 17.2 %; Mean Corpuscular HGB Conc 34 g/dL (31-36); Mean Corpuscular Hemoglobin 29 pg (27-31); Mean Corpuscular Volume 83 fL (80-94); Mean Platelet Volume 8.3 fL (7.4-10.4); Platelet Count 193 10^3/uL (150-450); Red Blood Count 5.23 10^6 /uL (4.18-5.48); Red Cell Distribution Width 14 % (10-15); White Blood Count 4.2 10^3/uL (3.5-10.8)
[2021-03-07 02:10] LABS: Albumin 4.3 g/dL (3.2-5.2); Albumin/Globulin Ratio 1.1 (1-3); Calcium 9.3 mg/dL (8.6-10.3); Globulin 3.9 g/dL (2-4); Potassium 3.6 mmol/L (3.5-5.0); Total Bilirubin 0.6 mg/dL (0.2-1.0); Total Protein 8.2 g/dL (6.4-8.9); eGFR CKD-EPI 81.2 (>60)
[2021-03-07 02:12] LABS: Troponin I 0.01 ng/mL (<0.03)
[2021-03-07] MEDS ORDERED: Iodixanol (CONTRAST) 320 MG/ML 100 ML SDV IV ONE (05:40)
[2021-03-07] MEDS ORDERED: Albuterol HFA INHALER 8 gm MDI INH ONE (08:12)
[2021-03-07] MEDS ORDERED: cefTRIAXone 1 gm/50 mL NS BAG 1 GM/50 ML BAG IV ONE (09:03)
[2021-03-07] MEDS ORDERED: Azithromycin 500 mg/250 ml NS 500 MG/250 ML BAG IVPB ONE (09:03)
[2021-03-07] MEDS ORDERED: Albuterol HFA INHALER 8 gm MDI INH PRN (10:08)
[2021-03-07 10:38] LABS: C Reactive Protein 68.45 mg/L (<8.01); HDL Cholesterol 15.4 mg/dL
[2021-03-07] MEDS ORDERED: Enoxaparin 40 MG/0.4 ML SYR SUBCUT SCH (11:00)
[2021-03-08 00:45] LABS: Urine Appearance Cloudy; Urine Bilirubin Negative (Negative); Urine Blood 3+ (Negative); Urine Color Yellow; Urine Glucose 3+(>=500 mg/dL) (Negative); Urine Ketones 1+ (Negative); Urine Nitrite Negative (Negative); Urine Protein 2+(100 mg/dL) (Negative); Urine Specific Gravity 1.022 (1.002-1.030); Urine Urobilinogen Negative (Negative)
[2021-03-08 00:58] LABS: Urine Bacteria Absent (Absent); Urine Red Blood Cell Trace(0-2/hpf) (Absent); Urine Squamous Epithelial Cell Present (Absent); Urine White Blood Cell 1+(6-10/hpf) (Absent)
[2021-03-08 06:17] LABS: ABS Lymphocytes 1.2 10^3/ul (1.0-4.8); ABS Monocytes 0.3 10^3/ul (0-0.8); ABS Neutrophils 3.4 10^3/ul (1.5-7.7); Hematocrit 40 % (42-52); Hemoglobin 13.7 g/dL (14.0-18.0); Lymphocyte % 24.3 %; Mean Corpuscular HGB Conc 34 g/dL (31-36); Mean Corpuscular Hemoglobin 29 pg (27-31); Mean Corpuscular Volume 84 fL (80-94); Nucleated Red Blood Cells % 0.1; Platelet Count 207 10^3/uL (150-450); Red Blood Count 4.79 10^6 /uL (4.18-5.48); Red Cell Distribution Width 14 % (10-15)
[2021-03-08 06:40] LABS: Calcium 9.2 mg/dL (8.6-10.3); Potassium 3.7 mmol/L (3.5-5.0); eGFR CKD-EPI 85.5 (>60)
[2021-03-08] MEDS ORDERED: cefTRIAXone 1 gm/50 mL NS BAG 1 GM/50 ML BAG IV SCH (09:00)
[2021-03-08] MEDS ORDERED: Remdesivir 100 mg Vial 200 MG in NS 0.9% 250 ml 210 ML IV ONE (09:36)
[2021-03-08 09:57] LABS: Albumin/Globulin Ratio 1.1 (1-3); Direct Bilirubin 0.1 mg/dL (0.03-0.18); Globulin 3.5 g/dL (2-4); Indirect Bilirubin 0.5 mg/dL (0.3-1.0); Total Bilirubin 0.6 mg/dL (0.2-1.0); Total Protein 7.5 g/dL (6.4-8.9)
[2021-03-08 13:29] LABS: INR 1.14 (0.86-1.15)
[2021-03-09 07:03] LABS: ABS Lymphocytes 0.9 10^3/ul (1.0-4.8); ABS Monocytes 0.3 10^3/ul (0-0.8); ABS Neutrophils 2.4 10^3/ul (1.5-7.7); Hematocrit 38 % (42-52); Hemoglobin 13.4 g/dL (14.0-18.0); Lymphocyte % 24.6 %; Mean Corpuscular HGB Conc 35 g/dL (31-36); Mean Corpuscular Hemoglobin 29 pg (27-31); Mean Corpuscular Volume 83 fL (80-94); Mean Platelet Volume 8.8 fL (7.4-10.4); Platelet Count 245 10^3/uL (150-450); Red Blood Count 4.59 10^6 /uL (4.18-5.48); Red Cell Distribution Width 14 % (10-15); White Blood Count 3.7 10^3/uL (3.5-10.8)
[2021-03-09 07:09] LABS: INR 1.17 (0.86-1.15)
[2021-03-09 07:21] LABS: Albumin 3.8 g/dL (3.2-5.2); Calcium 9.3 mg/dL (8.6-10.3); Globulin 3.7 g/dL (2-4); Potassium 3.9 mmol/L (3.5-5.0); Total Bilirubin 0.5 mg/dL (0.2-1.0); Total Protein 7.5 g/dL (6.4-8.9); eGFR CKD-EPI 115.9 (>60)
[2021-03-09] MEDS: cefTRIAXone 1 gm/50 mL NS BAG 1 GM/50 ML BAG IV SCH (09:30)
[2021-03-09] MEDS ORDERED: Dextrose 50% Syringe 50 ml 25 GM/50 ML SYRINGE IV PUSH PRN (16:10)
[2021-03-09] MEDS: Remdesivir 100 mg Vial 100 MG in NS 0.9% 250 ml 230 ML IV SCH (20:36)
[2021-03-09] MEDS ORDERED: Remdesivir 100 mg Vial 100 MG in NS 0.9% 250 ml 230 ML IV SCH (21:00)
[2021-03-10] MEDS: cefTRIAXone 1 gm/50 mL NS BAG 1 GM/50 ML BAG IV SCH (09:19)
[2021-03-10 09:38] LABS: ABS Lymphocytes 1.3 10^3/ul (1.0-4.8); ABS Monocytes 0.5 10^3/ul (0-0.8); ABS Neutrophils 4.3 10^3/ul (1.5-7.7); Hematocrit 40 % (42-52); Hemoglobin 13.9 g/dL (14.0-18.0); Mean Corpuscular HGB Conc 35 g/dL (31-36); Mean Corpuscular Hemoglobin 29 pg (27-31); Mean Corpuscular Volume 84 fL (80-94); Mean Platelet Volume 8.5 fL (7.4-10.4); Platelet Count 314 10^3/uL (150-450); Red Blood Count 4.81 10^6 /uL (4.18-5.48); Red Cell Distribution Width 14 % (10-15); White Blood Count 6.2 10^3/uL (3.5-10.8)
[2021-03-10 09:45] LABS: INR 1.14 (0.86-1.15)
[2021-03-10 09:54] LABS: Albumin 3.9 g/dL (3.2-5.2); Albumin/Globulin Ratio 1.1 (1-3); Calcium 9.6 mg/dL (8.6-10.3); Globulin 3.7 g/dL (2-4); Potassium 4.2 mmol/L (3.5-5.0); Total Bilirubin 0.5 mg/dL (0.2-1.0); Total Protein 7.6 g/dL (6.4-8.9)
[2021-03-10] MEDS: Remdesivir 100 mg Vial 100 MG in NS 0.9% 250 ml 230 ML IV SCH (22:12)
[2021-03-11] MEDS: cefTRIAXone 1 gm/50 mL NS BAG 1 GM/50 ML BAG IV SCH (10:07)
[2021-03-11 12:25] VITALS: BP 126/75
== END 2021-03-11 16:10 | disposition home or self-care (01) | DRG 177 ==
LOC: EDHOLD 00:44 → ED 00:44 → MED 12:38 → SUATTDRO 03-08 10:00
PROVIDERS: ADMIT Hospitalist; ATTEND Hospitalist

== ENCOUNTER 2022-08-05 10:51 | Inpatient (IN) ==
[2022-08-05 13:16] LABS: ABS Basophils 0.1 10^3/uL (0.0-0.1); ABS Eosinophils 0.1 10^3/uL (0.0-0.5); ABS Monocytes 0.5 10^3/uL (0.0-1.1); ABS Neutrophils 4.4 10^3/uL (1.5-7.6); Eosinophil % 0.7 %; Hematocrit 43.5 % (38-53); Hemoglobin 14.9 g/dL (13.2-16.3); Lymphocyte % 37.1 %; Mean Corpuscular Hemoglobin 29.9 pg (27-33); Mean Corpuscular Hgb Conc 34.1 g/dL (31-36); Mean Corpuscular Volume 87.5 fL (80-97); Mean Platelet Volume 8.3 fL (7.5-11.2); Nucleated Red Blood Cells % 0.1 /100 WBC (0.0-0.4); Platelet Count 273 10^3/uL (150-450); Red Blood Count 4.98 10^6/uL (4.06-5.63); Red Cell Distribution Width 13.5 % (12-17)
[2022-08-05 13:27] LABS: INR 0.98 (0.88-1.18)
[2022-08-05] MEDS ORDERED: NS 0.9% 1000 ml BAG 1,000 ML IV ONE (13:55)
[2022-08-05 14:04] LABS: Albumin 4.6 g/dL (3.2-5.2); Albumin/Globulin Ratio 1.8 (1-3); Calcium 9.9 mg/dL (8.6-10.3); Creatinine, Serum 0.95 mg/dL (0.67-1.17); Globulin 2.6 g/dL (2-4); Total Bilirubin 0.4 mg/dL (0.2-1.0); Total Protein 7.2 g/dL (6.4-8.9); eGFR CKD-EPI 105.7 (>60)
[2022-08-05 14:44] LABS: High Sensitivity Troponin 1 Hr 28 pg/mL (<20)
[2022-08-05] MEDS ORDERED: Iohexol 350 (CONTRAST) 500 ML MDV IV ONE (15:05)
[2022-08-05] MEDS ORDERED: Iodixanol (CONTRAST) 320 MG/ML 100 ML SDV IV ONE (15:41)
[2022-08-05 17:35] LABS: C Reactive Protein 28.01 mg/L (<8.01); HDL Cholesterol 39.3 mg/dL; Magnesium 1.5 mg/dL (1.9-2.7); Phosphorus 3.2 mg/dL (2.5-5.0)
[2022-08-05] MEDS ORDERED: Magnesium Sulfate IV 3 GM in NS 0.9% 100 ml BAG 100 ML IVPB ONE (18:30)
[2022-08-05 22:12] LABS: Erythrocyte Sed Rate 36 mm/Hr (0-14)
[2022-08-06 08:29] LABS: Magnesium 1.7 mg/dL (1.9-2.7); Potassium 3.7 mmol/L (3.5-5.0)
[2022-08-06 08:35] LABS: Creatinine, Serum 0.86 mg/dL (0.67-1.17); HDL Cholesterol 29.4 mg/dL; eGFR CKD-EPI 114.4 (>60)
[2022-08-06] MEDS ORDERED: Magnesium Sulfate IV 3 GM in NS 0.9% 100 ml BAG 100 ML IVPB ONE (08:35)
[2022-08-07] MEDS ORDERED: Regadenoson 0.4 MG/5 ML SYRINGE ONE (07:37)
[2022-08-08] MEDS ORDERED: Heparin 1,000 UNIT/ML 10 ml (10,000 UNITS) CATHLAB/DIALYSIS ONE (08:44)
[2022-08-08] MEDS ORDERED: fentaNYL 100 mcg/2 ml 50 MCG/ML VIAL ONE (08:44)
[2022-08-08] MEDS ORDERED: VERAPAMIL 2.5 MG/ML 2 ML VIAL ** 5 mg/2 ml ONE (08:44)
[2022-08-08] MEDS ORDERED: Midazolam 5 mg/5 ml VIAL 1 mg/ml 5 ml VIAL (5 mg) ONE (08:44)
[2022-08-08] MEDS ORDERED: Heparin 2 UNITS/ML 1000 mls 2,000 ML IV ONE (08:45)
[2022-08-08] MEDS ORDERED: Iohexol 350 (CONTRAST) 200 ML MDV IV ONE (08:45)
[2022-08-08] MEDS ORDERED: Lidocaine 1% MPF 5 ML VIAL ONE (08:45)
[2022-08-08] MEDS ORDERED: nitroGLYCERIN DRIP 25,000 MCG/250 ML BTL ONE (08:45)
[2022-08-08] MEDS ORDERED: NS 0.9% 1000 ml BAG 1,000 ML IV SCH (10:00)
[2022-08-08 16:21] VITALS: BP 132/70
== END 2022-08-08 16:17 | disposition home or self-care (01) | DRG 287 ==
LOC: ED 10:51 → EDHOLD 10:51 → SUATTDRO 15:16 → MEDTELE 16:57
PROVIDERS: ADMIT Internal Medicine; ATTEND Internal Medicine